=== PATIENT | male | born 1955 | race Caucasian/White ===

== ENCOUNTER 2019-03-31 12:44 | Emergency (ER) | payer OTHER ==
--- OUTSIDE RECORDS SUMMARY | 2019-03-31 12:47 | XMS REPORT ---
:1955 Author Organization eClinicalWorks Care Team Providers Name Role Phone Valentino Beebe Provider Role Unavailable Allergies, Adverse Reactions, Alerts Substance Reaction Event Type N.K.D.A. Info Not Available Non Drug Allergy Problems Problem Type Condition Code Onset Dates Condition Status Assessment Gout of left ankle, unspecified M10.9 Active cause, unspecified chronicity Assessment HTN, goal below 140/90 I10 Active Assessment Mixed hyperlipidemia E78.2 Active Assessment GERD without esophagitis K21.9 Active Problem GERD without esophagitis K21.9 Active Problem Hepatitis, chronic K73.9 Active Problem Mixed hyperlipidemia E78.2 Active Assessment Acute bronchitis, unspecified J20.9 Active organism Problem Gout of left ankle, unspecified M10.9 Active cause, unspecified chronicity Problem HTN, goal below 140/90 I10 Active Medications Medication Code Code Instructions Start End Status Dosage System Date Date Amlodipine [facility] 45912236883 10 MG Orally Active 1 tablet Besylate Once a day ProAir HFA [facility] 93809128184 108 (90 Base) March 07, Active 2 puffs as MCG/ACT 2017 needed Inhalation every 6 hrs PRN cough, Wheezing or Shortness of breath. Celecoxib ND 01935165009 200 MG Orally Active 1 capsule Once a day with food Benazepril HCl ND 67040548654 40 MG Orally Active 1 tablet Once a day Azithromycin ND 91403198589 250 MG Orally March 07February Active as directed Once a day 2017 Omeprazole ND 28295739188 20 MG Orally Active 1 capsule Once a day Centrum Silver ND 07026308816 - Orally Active as directed Allopurinol ND 32391367992 100 MG Orally Active 1 tablet Once a day Benzonatate ND 96097860367 200 MG Orally March 07March Active 1 capsule Three times a 2018 2017 Results No Known Results Summary Purpose eClinicalWorks Submission
[2019-03-31 14:00] LABS: Absolute Lymphocytes (CBC) 2.3 K/uL (0.7-4.9); Basophils % 1.1 % (0-1.3); Eosinophils % 2.1 % (0-4.4); Hematocrit 47.8 % (39.6-49.0); Lymphocytes % 28.8 % (15.3-44.8); MPV 9.4 fL (7.6-11.3); Monocytes % 9.2 % (3.3-12.3); RBC Red Blood Cell Count 5.08 M/uL (4.33-5.43)
[2019-03-31 14:01] LABS: Protime INR 1.08
[2019-03-31] MEDS ORDERED: MECLIZINE HCL 12.5 MG TAB ONE (14:01)
[2019-03-31 14:15] LABS: ALT/SGPT 46 U/L (12-78); AST/SGOT 24 U/L (15-37); Albumin 4.1 g/dL (3.4-5.0); Alkaline Phosphatase 60 U/L (45-117); BUN Blood Urea Nitrogen 15 mg/dL (7-18); Bicarbonate 26 mmol/L (21-32); Bilirubin Direct 0.2 mg/dL (0-0.2); Bilirubin Total 0.4 mg/dL (0.2-1.0); Glucose Level 99 mg/dL (74-106); Magnesium 2.4 mg/dL (1.8-2.4); Potassium 4.1 mmol/L (3.5-5.1); Protein, Total 7.8 g/dL (6.4-8.2); Sodium Level 140 mmol/L (136-145); Troponin (Emerg Dept Use Only) < 0.02 ng/mL (0.0-0.045)
[2019-03-31 14:19] LABS: NT PRO-BNP < 5 pg/mL (<125)
--- NOTE | 2019-03-31 14:22 | RAD REPORT ---
EXAM DESCRIPTION: CT - Head Brain Wo Cont - 03/31/2019 1:54 pm CLINICAL HISTORY: Dizziness COMPARISON: None. TECHNIQUE: Computed axial tomography of the head was obtained. IV contrast was not requested. All CT scans are performed using dose optimization technique as appropriate and may include automated exposure control or mA/KV adjustment according to patient size. FINDINGS: An intracranial bleed is not seen . The ventricles are normal in caliber. No extra-axial fluid collection is noted. Fluid within the sinuses/ mastoids is not seen. IMPRESSION: No acute intracranial abnormality is seen. If patient's symptoms persist MRI of the bra in would be recommended.
--- NOTE | 2019-03-31 14:26 | RAD REPORT ---
EXAM DESCRIPTION: [facility] Single View03/31/2019 2:14 pm CLINICAL HISTORY: Hypertension COMPARISON: 2008 FINDINGS: The lungs appear clear of acute infiltrate. The heart is normal size IMPRESSION: No acute abnormalities displayed
[2019-03-31] MEDS ORDERED: DIAZEPAM 5 MG TABLET ONE (14:58)
--- NOTE | 2019-03-31 15:36 | EKG ---
Test Date: 2019-03-31 Test Time: 12:55:48 Senior Clinical Project Manager: KELLI MEASUREMENT RESULTS: Intervals: Rate: 70 IN: 172 QRSD: 92 QT: 380 QTc: 410 [place]: P: 52 IN: 172 QRS: 59 T: 50 INTERPRETIVE STATEMENTS: Normal sinus rhythm Normal ECG No previous ECG available for comparison Electronically Signed On 03-31-19 15:35:08 CDT by Benito Garcia
--- NOTE | 2019-03-31 16:10 | ER ---
Nurse's Notes [facility] Name: Khai Quintanilla Age: 63 yrs Sex: Male : 1955 Arrival Date: 03/31/2019 Time: 12:47 Bed 28 Private MD: None, None Diagnosis: Benign paroxysmal vertigo Presentation: 03/31 12:57 Presenting complaint: Patient states: "I was dizzy a few days ago and my doctor said to aa5 go home eat some crackers and rest so I did that and I felt better but last night I started feeling dizzy again and woke up today feeling the same way" . Pt also reports nausea and reports diaphoresis during the night. Care prior to arrival: None. 12:57 Acuity: BONNIE 3 aa5 12:57 Method Of Arrival: Ambulatory aa5 12:57 Transition of care: patient was not received from another setting of care. Onset of aa5 symptoms was March 2019. Risk Assessment: Do you want to hurt yourself or someone else? Patient reports no desire to harm self or others. Initial Sepsis Screen: Does the patient meet any 2 criteria? No. Patient's initial sepsis screen is negative. Does the patient have a suspected source of infection? No. Patient's initial sepsis screen is negative. Historical: - Allergies: 13:01 No Known Allergies; aa5 - PMHx: 13:01 Hypertension; Hepatitis C- treated; Gout; aa5 - PSHx: 13:01 ankle; aa5 - Immunization history:: Flu vaccine is up to date. - Social history:: Smoking status: Patient/guardian denies using tobacco. - Ebola Screening: : No symptoms or risks identified at this time. Screenin:18 Abuse screen: Denies threats or abuse. Denies injuries from another. Nutritional ca1 screening: No deficits noted. Tuberculosis screening: No symptoms or risk factors identified. Fall Risk IV access (20 points). Assessment: 13:18 General: Appears in no apparent distress. comfortable, Behavior is calm, cooperative, ca1 appropriate for age. Pain: Denies pain. Neuro: Level of Consciousness is awake, alert, obeys commands, Oriented to person, place, time, situation, Aquatics Director are equal bilaterally Moves all extremities. Gait is steady, Speech is normal, Facial symmetry appears normal, Pupils are PERRLA, Reports dizziness, since 2-3 days ago. Cardiovascular: Heart tones S1 S2 present Capillary refill < 3 seconds Patient's skin is warm and dry. Pulses are all present. Rhythm is sinus rhythm. Respiratory: Reports shortness of breath on exertion Airway is patent Respiratory effort is even, unlabored, Respiratory pattern is regular, symmetrical, Breath sounds are clear bilaterally. GI: Abdomen is flat, non-distended, Bowel sounds present X 4 quads. Abd is soft and non tender X 4 quads. Reports nausea, Patient currently denies vomiting. : No deficits noted. No signs and/or symptoms were reported regarding the genitourinary system. EENT: No deficits noted. No signs and/or symptoms were reported regarding the EENT system. Derm: Skin is intact, is healthy with good turgor, Skin is pink, warm \\T\\ dry. Musculoskeletal: Circulation, motion, and sensation intact. Capillary refill < 3 seconds, Range of motion: intact in all extremities. 14:35 Reassessment: Patient appears in no apparent distress at this time. Patient and/or ca1 family updated on plan of care and expected duration. Pain level reassessed. Patient is alert, oriented x 3, equal unlabored respirations, skin warm/dry/pink. 15:42 Reassessment: Patient appears in no apparent distress at this time. Patient and/or ca1 family updated on plan of care and expected duration. Pain level reassessed. Patient is alert, oriented x 3, equal unlabored respirations, skin warm/dry/pink. 16:20 Reassessment: Patient is alert, oriented x 3, equal unlabored respirations, skin ca1 warm/dry/pink. Patient states feeling better. Vital Signs: 13:01 BP 153 / 97; Pulse 75; Resp 18 S; Temp 98.2(O); Pulse Ox 96% on R/A; Weight 97.52 kg aa5 (R); Height 5 ft. 11 in. (180.34 cm) (R); Pain 0/10; 13:18 BP 134 / 87; Pulse 65; Resp 14 S; Pulse Ox 97% on R/A; ca1 14:35 BP 140 / 95; Pulse 78; Resp 14 S; Temp 98.5(O); Pulse Ox 97% on R/A; ca1 15:42 BP 148 / 108; Pulse 69; Resp 17 S; Pulse Ox 98% on R/A; ca1 16:20 BP 138 / 93; Pulse 71; Resp 15 S; Pulse Ox 100% on R/A; ca1 13:01 Body Mass Index 29.99 (97.52 kg, 180.34 cm) aa5 ED Course: 12:47 Patient arrived in ED. dp 12:48 None, None is Private Physician. dp 12:56 Arm band placed on. aa5 12:58 Triage completed. aa5 13:00 EKG completed in triage. Results shown to MD. aa5 13:11 Dacia Morales, RN is Primary Nurse. ca1 13:18 Patient has correct armband on for positive identification. Placed in gown. Bed in low ca1 position. Call light in reach. Side rails up X 1. monitoring tech on. Pulse ox on. NIBP on. Warm blanket given. 13:18 No provider procedures requiring assistance completed. ca1 13:24 Amarjit Mena NP is PHCP. pm1 13:24 Arnaud Collins MD is Attending Physician. pm1 13:56 CT Head Brain wo Cont In Process Unspecified. EDMS 14:17 XRAY Chest (1 view) In Process Unspecified. EDMS 16:20 IV discontinued, intact, bleeding controlled, No redness/swelling at site. Pressure ca1 dressing applied. Administered Medications: 13:48 Drug: Meclizine 50 mg Route: PO; mg2 16:21 Follow up: Response: No adverse reaction ca1 14:43 Drug: Valium 5 mg Route: PO; ca1 16:21 Follow up: Response: No adverse reaction; Marked relief of symptoms ca1 Outcome: 16:09 Discharge ordered by MD. pm1 16:20 Discharged to home ambulatory, with family. ca1 16:20 Condition: stable 16:20 Discharge instructions given to patient, Instructed on discharge instructions, follow up and referral plans. medication usage, Demonstrated understanding of instructions, follow-up care, medications, Prescriptions given X 1. 16:26 Patient left the ED. ca1 Signatures: Dispatcher [employer] EDMS Marianne Limon RN RN aa5 Amarjit Mena, CLEO FURNITURE ARRANGER pm1 Cal Mack RN RN mg2 Dacia Morales RN RN ca1 Juan Dubosi
--- NOTE | 2019-03-31 16:10 | EDPHYS ---
Physician Documentation [facility] Name: Khai Quintanilla Age: 63 yrs Sex: Male : 1955 Arrival Date: 03/31/2019 Time: 12:47 Bed 28 Private MD: None, None ED Physician Arnaud Collins HPI: 03/31 14:02 This 63 yrs old Male presents to ER via Ambulatory with complaints of pm1 Dizziness. 14:02 The patient presents with sense of spinning, vertigo. Onset: The symptoms/episode pm1 began/occurred 2 day(s) ago. Context: occurred at home, just prior to the episode the patient experienced no apparent symptoms. Modifying factors: The symptoms are alleviated by nothing, the symptoms are aggravated by standing up, changing position. Associated signs and symptoms: Pertinent positives: nausea, shortness of breath, Pertinent negatives: abdominal pain, chest pain, diaphoresis, nausea, numbness, tingling. Severity of symptoms: in the emergency department the symptoms have improved at it's worse last night. Patient's baseline: Neuro: alert and fully oriented, Motor: no deficits, Ambulation: walks without assistance, Speech: normal. The patient has not experienced similar symptoms in the past. The patient has not recently seen a physician. Historical: - Allergies: 13:01 No Known Allergies; aa5 - PMHx: 13:01 Hypertension; Hepatitis C- treated; Gout; aa5 - PSHx: 13:01 ankle; aa5 - Immunization history:: Flu vaccine is up to date. - Social history:: Smoking status: Patient/guardian denies using tobacco. - Ebola Screening: : No symptoms or risks identified at this time. ROS: 14:02 Constitutional: Negative for fever, chills, and weight loss, Eyes: Negative for injury, pm1 pain, redness, and discharge, ENT: Negative for injury, pain, and discharge, Neck: Negative for injury, pain, and swelling, Cardiovascular: Negative for chest pain, palpitations, and edema, Back: Negative for injury and pain. 14:02 MS/Extremity: Negative for injury and deformity, Skin: Negative for injury, rash, and discoloration. 14:02 Respiratory: Positive for shortness of breath, Negative for cough, wheezing. 14:02 Abdomen/GI: Positive for nausea, Negative for abdominal pain, vomiting, diarrhea. 14:02 Neuro: Positive for dizziness, tinnitus, Negative for headache, numbness, tingling, weakness. Exam: 14:02 Constitutional: This is a well developed, well nourished patient who is awake, alert, pm1 and in no acute distress. Head/Face: Normocephalic, atraumatic. 14:02 ENT: Nares patent. No nasal discharge, no septal abnormalities noted. Tympanic membranes are normal and external auditory canals are clear. Oropharynx with no redness, swelling, or masses, exudates, or evidence of obstruction, uvula midline. Mucous membranes moist. Leela HallPike Test positive for causing surrounding area spinning that lasts shorter than 15 seconds Neck: Trachea midline, no thyromegaly or masses palpated, and no cervical lymphadenopathy. Supple, full range of motion without nuchal rigidity, or vertebral point tenderness. No Meningismus. Chest/axilla: Normal chest wall appearance and motion. Nontender with no deformity. No lesions are appreciated. Cardiovascular: Regular rate and rhythm with a normal S1 and S2. No gallops, murmurs, or rubs. Normal PMI, no JVD. No pulse deficits. Respiratory: Lungs have equal breath sounds bilaterally, clear to auscultation and percussion. No rales, rhonchi or wheezes noted. No increased work of breathing, no retractions or nasal flaring. Abdomen/GI: Soft, non-tender, with normal bowel sounds. No distension or tympany. No guarding or rebound. No evidence of tenderness throughout. Back: No spinal tenderness. No costovertebral tenderness. Full range of motion. Skin: Warm, dry with normal turgor. Normal color with no rashes, no lesions, and no evidence of cellulitis. MS/ Extremity: Pulses equal, no cyanosis. Neurovascular intact. Full, normal range of motion. 14:02 Eyes: Pupils: no acute changes, Extraocular movements: intact throughout, Conjunctiva: normal, Nystagmus: vestibular nystagmus. 14:02 Neuro: Orientation: is normal, Motor: moves all fours, Sensation: is normal. Vital Signs: 13:01 BP 153 / 97; Pulse 75; Resp 18 S; Temp 98.2(O); Pulse Ox 96% on R/A; Weight 97.52 kg aa5 (R); Height 5 ft. 11 in. (180.34 cm) (R); Pain 0/10; 13:18 BP 134 / 87; Pulse 65; Resp 14 S; Pulse Ox 97% on R/A; ca1 14:35 BP 140 / 95; Pulse 78; Resp 14 S; Temp 98.5(O); Pulse Ox 97% on R/A; ca1 15:42 BP 148 / 108; Pulse 69; Resp 17 S; Pulse Ox 98% on R/A; ca1 16:20 BP 138 / 93; Pulse 71; Resp 15 S; Pulse Ox 100% on R/A; ca1 13:01 Body Mass Index 29.99 (97.52 kg, 180.34 cm) aa5 MDM: 13:37 Patient medically screened. pm1 16:00 ED course: Patient significantly better with Valium. pm1 16:06 Data reviewed: vital signs. Data interpreted: Pulse oximetry: on room air is 98 %. pm1 Interpretation: normal. Counseling: I had a detailed discussion with the patient and/or guardian regarding: the historical points, exam findings, and any diagnostic results supporting the discharge/admit diagnosis, lab results, radiology results, the need for outpatient follow up, a neurologist, to return to the emergency department if symptoms worsen or persist or if there are any questions or concerns that arise at home. 03/31 13:38 Order name: Basic Metabolic Panel; Complete Time: 14:26 pm03/31 13:38 Order name: CBC with Diff; Complete Time: 14:08 pm03/31 13:38 Order name: LFT's; Complete Time: 14: pm03/31 13:38 Order name: Magnesium; Complete Time: 14:26 pm03/31 13:38 Order name: NT PRO-BNP; Complete Time: 14:26 pm03/31 13:38 Order name: PT-INR; Complete Time: 14:08 pm03/31 13:38 Order name: CT Head Brain wo Cont; Complete Time: 14:26 pm03/31 13:38 Order name: Troponin (emerg Dept Use Only); Complete Time: 14:26 pm03/31 13:38 Order name: XRAY Chest (1 view); Complete Time: 14:29 pm03/31 13:38 Order name: EKG; Complete Time: 13:40 pm1 03/31 13:38 Order name: Cardiac monitoring; Complete Time: 13:48 pm1 03/31 13:38 Order name: EKG - Nurse/Tech; Complete Time: 13:41 pm1 03/31 13:38 Order name: IV Saline Lock; Complete Time: 13:48 pm1 03/31 13:38 Order name: Labs collected and sent; Complete Time: 13:48 pm1 03/31 13:38 Order name: O2 Per Protocol; Complete Time: 13:48 pm1 03/31 13:38 Order name: O2 Sat Monitoring; Complete Time: 13:48 pm1 Administered Medications: 13:48 Drug: Meclizine 50 mg Route: PO; mg2 16:21 Follow up: Response: No adverse reaction ca1 14:43 Drug: Valium 5 mg Route: PO; ca1 16:21 Follow up: Response: No adverse reaction; Marked relief of symptoms ca1 Disposition: 03/31/19 16:09 Discharged to Home. Impression: Benign paroxysmal vertigo. - Condition is Stable. - Discharge Instructions: Benign Positional Vertigo. - Prescriptions for Valium 5 mg Oral Tablet - take 1 tablet by ORAL route every 8 hours As needed; 20 tablet. - Medication Reconciliation Form, Thank You Letter, Antibiotic Education, Prescription Opioid Use form. - Follow up: Emergency Department; When: As needed; Reason: Worsening of condition. Follow up: Private Physician; When: 2 - 3 days; Reason: Recheck today's complaints, Continuance of care, Re-evaluation by your physician. - Problem is new. - Symptoms have improved. Addendum: 04/01/2019 18:50 Co-signature as Attending Physician, Arnaud Collins MD. g s Signatures: Dispatcher [employer] EDIA Marianne Limon RN RN aa5 Amarjit Mena, UPTWISTER TENDER UPTWISTER TENDER pm1 Arnaud Collins MD MD gs Cal Mack RN RN mg2 Dacia Morales RN RN ca1 Corrections: (The following items were deleted from the chart) 03/31 16:26 16:09 03/31/2019 16:09 Discharged to Home. Impression: Benign paroxysmal vertigo. ca1 Condition is Stable. Forms are Medication Reconciliation Form, Thank You Letter, Antibiotic Education, Prescription Opioid Use. Follow up: Emergency Department; When: As needed; Reason: Worsening of condition. Follow up: Private Physician; When: 2 - 3 days; Reason: Recheck today's complaints, Continuance of care, Re-evaluation by your physician. Problem is new. Symptoms have improved. pm1
== END 2019-03-31 16:26 | disposition home or self-care (01) ==
LOC: ER 12:44
DX: H81.10 Benign paroxysmal vertigo, unspecified ear (principal); I10 Essential (primary) hypertension
CPT/HCPCS: 36415; 70450; 71045; 80048; 80076; 83735; 83880; 84484; 85025; 85610; 93005; 99284

== ENCOUNTER 2019-11-23 20:21 | Emergency (ER) | payer OTHER ==
--- OUTSIDE RECORDS SUMMARY | 2019-11-23 20:24 | XMS REPORT ---
:1955 Author Organization eClinicalWorks Care Team Providers Name Role Phone Valentino Beebe Provider Role Unavailable Allergies No Known Allergies Problems Problem Type Condition Code Onset Dates Condition Status Problem GERD without esophagitis K21.9 Active Problem Hepatitis, chronic K73.9 Active Problem Mixed hyperlipidemia E78.2 Active Problem Gout of left ankle, unspecified M10.9 Active cause, unspecified chronicity Problem HTN, goal below 140/90 I10 Active Medications No Known Medications Results No Known Results Summary Purpose eClinicalWorks Submission
--- OUTSIDE RECORDS SUMMARY | 2019-11-23 20:24 | XMS REPORT ---
:1955 [facility] [address] [place] [address] Care Team Providers Name Role Phone Unavailable Unavailable Unavailable Payers Payer Name Policy Type Policy Number Effective Date Expiration Date Problems This patient has no known problems. Allergies, Adverse Reactions, Alerts Allergy Allergy Status Severity Reaction(s) Onset Inactive Treating Comments Name Type Date Date Clinician No Known DA Active U 2019-05 Allergies -05 00:00:0 0 Medications This patient has no known medications. Results Test Description Test Time Test Comments Text Results Atomic Results Result Comments - XR CHEST 1V 2019-05-25 08:16:00 Patient Name: ODELL MOTT Unit No: [id number] EXAMS: CPT CODE: [id number] XR CHEST 1V 43024 EXAMINATION: - XR CHEST 1V. LOCATION: B2. HISTORY: Follow up. COMPARISON: Radiograph dated 05/24/2019. TECHNIQUE: Single AP view of the chest was obtained. FINDINGS: The heart is normal in size. Small left pleural effusion and left basilar opacities are present, decreased since prior exam. The right lung is clear. No acute osseous abnormality is identified. IMPRESSION: Small left pleural effusion with left basilar opacities, decreased since prior exam. at 0816 Reported and signed by: Zion Baez MD CC: Kassandra Francois MD; Cadence Holder TANNING [employer] ATTENDANT Technologist: Sara Caldwell RT(R) Transcrpt Date/Tm/Trnsp: 05/25/2019 (0816) [email or web address] Orig Print D/T: S: 05/25/2019 (0819) [facility] NAME: ODELL MOTT [address] PHYS: SYED.Yvonne [place] [address] : 1955 AGE: 63 SEX: M LOC: [place] A PHONE #: [phone] EXAM DATE: 05/25/2019 STATUS: ADM IN FAX #: [phone] RADIOLOGY NO: PAGE 1 Signed Report BASIC METABOLIC PANEL 2019-05-25 05:30:00 Test Item Value Reference Range Comments SODIUM (test code=NA) 138 MMOL/L 137-145 POTASSIUM (test code=K) 3.3 MMOL/L 3.5-5.1 CHLORIDE (test code=CL) 105 MMOL/L 98-107 CARBON DIOXIDE (test code=CO2) 28 MMOL/L 22-30 GLUCOSE (test code=GLU) 105 MG/DL 74-106 BLOOD UREA NITROGEN (test 8 MG/DL 9-20 code=BUN) GLOMERULAR FILTRATION RATE (test 51 Reporting units: ml/min/1.73 m2 code=GFR) (Modified MDRD Formula)Reference Range: > or=60 ml/min/1.73 m2 CREATININE (test code=CREAT) 1.40 MG/DL 0.66-1.25 CALCIUM (test code=CA) 9.4 MG/DL 8.4-10.2 BASIC METABOLIC [id number] 05:29:00 Test Item Value Reference Range Comments SODIUM (test code=NA) 138 MMOL/L 137-145 POTASSIUM (test code=K) 3.3 MMOL/L 3.5-5.1 CHLORIDE (test code=CL) 105 MMOL/L 98-107 CARBON DIOXIDE (test code=CO2) MMOL/L 22-30 GLUCOSE (test code=GLU) MG/DL 74-106 BLOOD UREA NITROGEN (test MG/DL 9-20 code=BUN) GLOMERULAR FILTRATION RATE 51 Reporting units: ml/min/1.73 (test code=GFR) m2 (Modified MDRD Formula)Reference Range: > or=60 ml/min/1.73 m2 CREATININE (test code=CREAT) 1.40 MG/DL 0.66-1.25 CALCIUM (test code=CA) MG/DL 8.7-9.7 BASIC METABOLIC [id number] 05:27:00 Test Item Value Reference Range Comments SODIUM (test code=NA) 138 MMOL/L 137-145 POTASSIUM (test code=K) 3.3 MMOL/L 3.5-5.1 CHLORIDE (test code=CL) 105 MMOL/L 98-107 CARBON DIOXIDE (test code=CO2) MMOL/L 22-30 GLUCOSE (test code=GLU) MG/DL 74-106 BLOOD UREA NITROGEN (test code=BUN) MG/DL 9-20 GLOMERULAR FILTRATION RATE (test code=GFR) CREATININE (test code=CREAT) MG/DL 0.66-1.25 CALCIUM (test code=CA) MG/DL 8.7-9.7 CBC W/AUTO [id number] 05:08:00 Test Item Value Reference Range Comments WHITE BLOOD CELL (test code=WBC) 10.1 K/MM3 3.8-9.8 RED BLOOD CELL (test code=RBC) 4.54 M/MM3 3.95-5.67 HEMOGLOBIN (test code=HGB) 14.5 G/DL 12.4-16.7 HEMATOCRIT (test code=HCT) 42.1 % 35.9-49.5 MEAN CELL VOLUME (test code=MCV) 93 fL 81.7-96.1 MEAN CELL HGB (test code=MCH) 31.9 pg 27.6-33.2 MEAN CELL HGB CONCETRATION (test code=MCHC) 34.4 % 32.9-35.5 RED CELL DISTRIBUTION WIDTH (test code=RDW) 13.1 % 12.1-15.2 PLATELET COUNT (test code=PLT) 224 K/MM3 129-368 MEAN PLATELET VOLUME (test code=MPV) 10.5 fl 7.4-10.4 NEUTROPHIL % (test code=NT%) 65.6 % 43-75 IMMATURE GRANULOCYTE % (test code=IG%) 0.3 % 0.0-2.0 LYMPHOCYTE % (test code=LY%) 22.0 % 14-44 MONOCYTE % (test code=MO%) 9.1 % 4-13 EOSINOPHIL % (test code=EO%) 2.3 % 0-6 BASOPHIL % (test code=BA%) 0.7 % 0-2 NUCLEATED RBC % (test code=NRBC%) 0.0 % 0-1.0 NEUTROPHIL # (test code=NT#) 6.63 K/mm3 2.0-7.6 IMMATURE GRANULOCYTE # (test code=IG#) 0.03 x10 3/uL 0-0.03 LYMPHOCYTE # (test code=LY#) 2.22 K/mm3 1.0-3.8 MONOCYTE # (test code=MO#) 0.92 K/mm3 0.1-0.8 EOSINOPHIL # (test code=EO#) 0.23 K/mm3 0.0-0.2 BASOPHIL # (test code=BA#) 0.07 K/mm3 0.0-0.2 NUCLEATED RBC # (test code=NRBC#) 0.00 K/mm3 0.0-0.1 - XR CHEST [id number] 08:07:00 Patient Name: ODELL MOTT Unit No: [id number] EXAMS: CPT CODE: [id number] XR CHEST 1V 43291 EXAMINATION: - XR CHEST 1V. LOCATION: B2. HISTORY: Follow up. COMPARISON: Radiograph dated 05/23/2019. TECHNIQUE: Single AP view of the chest was obtained. FINDINGS: The heart is normal in size. Smallbilateral pleural effusions and left basilar opacities are present, decreased on the right since prior exam. No acute osseous abnormality is identified. IMPRESSION:Small bilateral pleural effusions and left basilar opacities, decreased on the right since prior exam. at 0807 Reported and signed by: Zion Baez MD CC: Kassandra Francois MD;Cadence Holder [employer]ANNING [employer] ATTENDANT Technologist: Sara Caldwell RT(R) Transcrpt Date/Tm/Trnsp: 05/24/2019 (0807) AlejandroPR7 Orig Print D/T: S: 05/24/2019 (08) [facility] NAME: ODELL MOTT [address] PHYS: SYED.Yvonne - [place] [address] : 1955 AGE: 63 SEX: M LOC: Z.362 A PHONE #: [phone] EXAM DATE : 05/24/2019 STATUS: ADM IN FAX #: [phone] RADIOLOGY NO: PAGE 1 Signed ReportBASIC METABOLIC [id number] 05:58:00 Test Item Value Reference Range Comments SODIUM (test code=NA) 140 MMOL/L 137-145 POTASSIUM (test code=K) 3.0 MMOL/L 3.5-5.1 CHLORIDE (test code=CL) 104 MMOL/L 98-107 CARBON DIOXIDE (test code=CO2) 29 MMOL/L 22-30 ANION GAP (test code=GAP) 10 MMOL/L 14-24 GLUCOSE (test code=GLU) 114 MG/DL 74-106 BLOOD UREA NITROGEN (test 9 MG/DL 9-20 code=BUN) GLOMERULAR FILTRATION RATE 47 Reporting units: ml/min/1.73 (test code=GFR) m2 (Modified MDRD Formula)Reference Range: > or=60 ml/min/1.73 m2 CREATININE (test code=CREAT) 1.50 MG/DL 0.66-1.25 CALCIUM (test code=CA) 9.1 MG/DL 8.4-10.2 CBC W/AUTO [id number] 05:38:00 Test Item Value Reference Range Comments WHITE BLOOD CELL (test code=WBC) 9.3 K/MM3 3.8-9.8 RED BLOOD CELL (test code=RBC) 4.52 M/MM3 3.95-5.67 HEMOGLOBIN (test code=HGB) 14.2 G/DL 12.4-16.7 HEMATOCRIT (test code=HCT) 42.5 % 35.9-49.5 MEAN CELL VOLUME (test code=MCV) 94 fL 81.7-96.1 MEAN CELL HGB (test code=MCH) 31.4 pg 27.6-33.2 MEAN CELL HGB CONCETRATION (test code=MCHC) 33.4 % 32.9-35.5 RED CELL DISTRIBUTION WIDTH (test code=RDW) 13.0 % 12.1-15.2 PLATELET COUNT (test code=PLT) 225 K/MM3 129-368 MEAN PLATELET VOLUME (test code=MPV) 10.7 fl 7.4-10.4 NEUTROPHIL % (test code=NT%) 63.7 % 43-75 IMMATURE GRANULOCYTE % (test code=IG%) 0.4 % 0.0-2.0 LYMPHOCYTE % (test code=LY%) 22.0 % 14-44 MONOCYTE % (test code=MO%) 11.6 % 4-13 EOSINOPHIL % (test code=EO%) 1.5 % 0-6 BASOPHIL % (test code=BA%) 0.8 % 0-2 NUCLEATED RBC % (test code=NRBC%) 0.0 % 0-1.0 NEUTROPHIL # (test code=NT#) 5.95 K/mm3 2.0-7.6 IMMATURE GRANULOCYTE # (test code=IG#) 0.04 x10 3/uL 0-0.03 LYMPHOCYTE # (test code=LY#) 2.05 K/mm3 1.0-3.8 MONOCYTE # (test code=MO#) 1.08 K/mm3 0.1-0.8 EOSINOPHIL # (test code=EO#) 0.14 K/mm3 0.0-0.2 BASOPHIL # (test code=BA#) 0.07 K/mm3 0.0-0.2 NUCLEATED RBC # (test code=NRBC#) 0.00 K/mm3 0.0-0.1 BASIC METABOLIC [id number] 09:05:00 Test Item Value Reference Range Comments SODIUM (test code=NA) 139 MMOL/L 137-145 POTASSIUM (test code=K) 3.2 MMOL/L 3.5-5.1 CHLORIDE (test code=CL) 106 MMOL/L 98-107 CARBON DIOXIDE (test code=CO2) 27 MMOL/L 22-30 GLUCOSE (test code=GLU) 119 MG/DL 74-106 BLOOD UREA NITROGEN (test 11 MG/DL 9-20 code=BUN) GLOMERULAR FILTRATION RATE > 60 Reporting units: ml/min/1.73 (test code=GFR) m2 (Modified MDRD Formula)Reference Range: > or=60 ml/min/1.73 m2 CREATININE (test code=CREAT) 1.20 MG/DL 0.66-1.25 CALCIUM (test code=CA) 9.3 MG/DL 8.4-10.2 UNABLE TO DRAW BLOOD, REASON: TO BE DONE @ 800NOTIFIED PATIENT CARE STAFF: ELLEN 05/23/19 AT 0413BY Caro ReneeCBC W/AUTO [id number] 08:43: 00 Test Item Value Reference Range Comments WHITE BLOOD CELL (test code=WBC) 9.1 K/MM3 3.8-9.8 RED BLOOD CELL (test code=RBC) 4.69 M/MM3 3.95-5.67 HEMOGLOBIN (test code=HGB) 14.8 G/DL 12.4-16.7 HEMATOCRIT (test code=HCT) 44.1 % 35.9-49.5 MEAN CELL VOLUME (test code=MCV) 94 fL 81.7-96.1 MEAN CELL HGB (test code=MCH) 31.6 pg 27.6-33.2 MEAN CELL HGB CONCETRATION (test code=MCHC) 33.6 % 32.9-35.5 RED CELL DISTRIBUTION WIDTH (test code=RDW) 13.1 % 12.1-15.2 PLATELET COUNT (test code=PLT) 224 K/MM3 129-368 MEAN PLATELET VOLUME (test code=MPV) 10.5 fl 7.4-10.4 NEUTROPHIL % (test code=NT%) 63.7 % 43-75 IMMATURE GRANULOCYTE % (test code=IG%) 0.2 % 0.0-2.0 LYMPHOCYTE % (test code=LY%) 22.2 % 14-44 MONOCYTE % (test code=MO%) 11.4 % 4-13 EOSINOPHIL % (test code=EO%) 1.8 % 0-6 BASOPHIL % (test code=BA%) 0.7 % 0-2 NUCLEATED RBC % (test code=NRBC%) 0.0 % 0-1.0 NEUTROPHIL # (test code=NT#) 5.78 K/mm3 2.0-7.6 IMMATURE GRANULOCYTE # (test code=IG#) 0.02 x10 3/uL 0-0.03 LYMPHOCYTE # (test code=LY#) 2.01 K/mm3 1.0-3.8 MONOCYTE # (test code=MO#) 1.03 K/mm3 0.1-0.8 EOSINOPHIL # (test code=EO#) 0.16 K/mm3 0.0-0.2 BASOPHIL # (test code=BA#) 0.06 K/mm3 0.0-0.2 NUCLEATED RBC # (test code=NRBC#) 0.00 K/mm3 0.0-0.1 UNABLE TO DRAW BLOOD, REASON: TO BE DONE @ 800 NOTIFIED PATIENT CARE STAFF: ELLEN 05/23/19 AT 0414 BY Caro Renee- XR CHEST [id number] 07:55: 00 Patient Name: ODELL MOTT Unit No: [id number] EXAMS: CPT CODE: [id number] XR CHEST 1V 14847 EXAMINATION: - XR CHEST 1V. LOCATION: B2. HISTORY: follow up. COMPARISON: Radiograph dated 05/21/2019. TECHNIQUE: Single AP view of the chest was obtained. FINDINGS: The heart is normal in size. Small bilateral pleural effusions are present, unchanged. No acute osseous abnormality is identified. IMPRESSION: Small bilateral pleural effusions, unchanged. at 0755 Reported and signedby: Zion Baez MD CC: Kassandra Francois MD ; Cadence Holder [employer]ANNING [employer] ATTENDANT Technologist: RT Livia(R) Transcrpt Date/Tm/Trnsp: 05/23/2019 (0755) [email or web address] Orig Print D/T: S: 05/23/2019 (0758) [facility] NAME: ODELL MOTT [address] PHYS: SYED.Yvonne - [place] [address] : 1955 AGE: 63 SEX: M LOC: Z.SI06 A PHONE #: [phone] EXAM DATE: 05/23/2019 STATUS: ADM IN FAX #: [phone] NO: PAGE 1 Signed ReportBASIC METABOLIC [id number] 11:37:00 Test Item Value Reference Range Comments SODIUM (test code=NA) 141 MMOL/L 137-145 POTASSIUM (test code=K) 3.6 MMOL/L 3.5-5.1 CHLORIDE (test code=CL) 107 MMOL/L 98-107 CARBON DIOXIDE (test code=CO2) 25 MMOL/L 22-30 GLUCOSE (test code=GLU) 90 MG/DL 74-106 BLOOD UREA NITROGEN (test 13 MG/DL 9-20 code=BUN) GLOMERULAR FILTRATION RATE > 60 Reporting units: ml/min/1.73 (test code=GFR) m2 (Modified MDRD Formula)Reference Range: > or=60 ml/min/1.73 m2 CREATININE (test code=CREAT) 1.00 MG/DL 0.66-1.25 CALCIUM (test code=CA) 9.6 MG/DL 8.4-10.2 CBC W/AUTO [id number] 11:17:00 Test Item Value Reference Range Comments WHITE BLOOD CELL (test code=WBC) 10.4 K/MM3 3.8-9.8 RED BLOOD CELL (test code=RBC) 4.81 M/MM3 3.95-5.67 HEMOGLOBIN (test code=HGB) 15.4 G/DL 12.4-16.7 HEMATOCRIT (test code=HCT) 46.0 % 35.9-49.5 MEAN CELL VOLUME (test code=MCV) 96 fL 81.7-96.1 MEAN CELL HGB (test code=MCH) 32.0 pg 27.6-33.2 MEAN CELL HGB CONCETRATION (test code=MCHC) 33.5 % 32.9-35.5 RED CELL DISTRIBUTION WIDTH (test code=RDW) 13.2 % 12.1-15.2 PLATELET COUNT (test code=PLT) 210 K/MM3 129-368 MEAN PLATELET VOLUME (test code=MPV) 10.7 fl 7.4-10.4 NEUTROPHIL % (test code=NT%) 67.6 % 43-75 IMMATURE GRANULOCYTE % (test code=IG%) 0.3 % 0.0-2.0 LYMPHOCYTE % (test code=LY%) 20.1 % 14-44 MONOCYTE % (test code=MO%) 9.8 % 4-13 EOSINOPHIL % (test code=EO%) 1.5 % 0-6 BASOPHIL % (test code=BA%) 0.7 % 0-2 NUCLEATED RBC % (test code=NRBC%) 0.0 % 0-1.0 NEUTROPHIL # (test code=NT#) 7.06 K/mm3 2.0-7.6 IMMATURE GRANULOCYTE # (test code=IG#) 0.03 x10 3/uL 0-0.03 LYMPHOCYTE # (test code=LY#) 2.10 K/mm3 1.0-3.8 MONOCYTE # (test code=MO#) 1.02 K/mm3 0.1-0.8 EOSINOPHIL # (test code=EO#) 0.16 K/mm3 0.0-0.2 BASOPHIL # (test code=BA#) 0.07 K/mm3 0.0-0.2 NUCLEATED RBC # (test code=NRBC#) 0.00 K/mm3 0.0-0.1 - XR CHEST [id number] 08:57:00 Patient Name: OEDLL MOTT Unit No: [id number] EXAMS: CPT CODE: [id number] XR CHEST 1V 62755 Dictation location: B2. CHEST, FRONTAL VIEW HISTORY: chest pain FINDINGS: Since 05/20/19, the small bilateral pleural effusions, left greater than right are not significantly changed. The lungs are otherwise clear. The heart size is normal. No pneumothorax. The bones are intact. Surgical clips seen in the left paratracheal stripe. IMPRESSION: Stable trace to small bilateral pleural effusions. Electronically Signed by Lianne Garza MD on 04/2019 at 0857 Reported and signed by: Lianne Garza MD CC: Kassandra Francois MD; Madhavi Sarkar NP Technologist: Milton Black, (RT) (R) Transcrpt Date/Tm/Trnsp: 05/21/2019 (0857) [email or web address] Orig Print D/T: S: 05/21/2019 (0900) [facility] NAME: ODELL MOTT [address] [place] [address] PHYS: [place] [address] : 1955 AGE: 63 SEX: M LOC: Z.SI06 A PHONE #: [phone] EXAM DATE: 05/21/2019 STATUS: ADM IN FAX #: [phone] RADIOLOGY NO: PAGE 1 Signed Report- XR NECK SOFT [id number] 09:06:00 Patient Name: ODELL MOTT Unit No: [id number] EXAMS: CPT CODE: [id number] XR NECK SOFT TISSUE 75381 Dictation location: B2. SOFT TISSUE NECK, 2 VIEWSHISTORY: Esophageal tear. FINDINGS: No prevertebral soft tissue swelling. No subcutaneous emphysema. The cervical alignment is straightened. Mild to moderate cervical spondylosis. Chronic calcifications. On the frontal view there are potential 2 clipsat the thoracic inlet, not well visualized in the lateral view likely due to overlying soft tissues. IMPRESSION: Possible 2 clips along the thoracic inlet. No emphysema or prevertebral soft tissue swelling. at 0906 Reported and signed by: Lianne Garza MD CC: Kassandra Francois MD; Madhavi Sarkar NP Technologist: Gaby Oliveros (RT)(R) TranscrptDate/Tm/Trnsp: 05/20/2019 (905) Britton.[email or web address] Orig Print D /T: S: 05/20/2019 (908) [facility] NAME: ODELL MOTT [address] PHYS: [place] [address] : 1955 AGE: 63 SEX: M LOC: Z.SI06 A PHONE #: [phone] EXAM DATE: 05/20/2019 STATUS: ADM IN FAX #: [phone] RADIOLOGY NO: PAGE 1 Signed Report- XR CHEST 2 [id number] 09:00:00 Patient Name: ODELL MOTT Unit No: [id number] EXAMS: CPT CODE: [id number] XR CHEST 2 V 14083 Dictation location: L11. CHEST, FRONTAL AND LATERAL VIEWS HISTORY: esophageal tear FINDINGS: Since 05/19/19, small bilateral pleural effusions are noted, left greater than right with adjacent atelectasis. The remainder the lungs are clear. Heart size is normal. Mild degenerative changes affects the thoracic spine. IMPRESSION: Small bilateral pleural effusions. at 0900 Reported and signed by: Lianne Garza MD CC: Kassandra Francois MD; Madhavi Sarkar NP Technologist: Gaby Oliveros (RT)(R) Transcrpt Date/Tm /Trnsp: 05/20/2019 (09) [email or web address] Orig Print D/T: S: 2018 (0903) [facility] NAME: ODELL MOTT [address] PHYS: [place] [address] : 1955 AGE : 63 SEX: M LOC : Z.SI06 A PHONE #: [phone] EXAM DATE: 05/20/2019 STATUS : ADM IN FAX #: [phone] RADIOLOGY NO: PAGE 1 Signed ReportVANCOMYCIN [id number] 06:15:00 Test Item Value Reference Range Comments VANCOMYCIN TROUGH (test code=VANCT) 11.8 UG/ML 10.0-20.0 PER NURSE FIORAD DRAW THE VANCO WITH AM LABSBASIC METABOLIC [id number] 05 :15:00 Test Item Value Reference Range Comments SODIUM (test code=NA) 138 MMOL/L 137-145 POTASSIUM (test code=K) 3.7 MMOL/L 3.5-5.1 CHLORIDE (test code=CL) 106 MMOL/L 98-107 CARBON DIOXIDE (test code=CO2) 26 MMOL/L 22-30 GLUCOSE (test code=GLU) 112 MG/DL 74-106 BLOOD UREA NITROGEN (test 14 MG/DL 9-20 code=BUN) GLOMERULAR FILTRATION RATE > 60 Reporting units: ml/min/1.73 (test code=GFR) m2 (Modified MDRD Formula)Reference Range: > or=60 ml/min/1.73 m2 CREATININE (test code=CREAT) 0.90 MG/DL 0.66-1.25 CALCIUM (test code=CA) 8.9 MG/DL 8.4-10.2 CBC W/AUTO [id number] 04:57:00 Test Item Value Reference Range Comments WHITE BLOOD CELL (test code=WBC) 12.3 K/MM3 3.8-9.8 RED BLOOD CELL (test code=RBC) 4.67 M/MM3 3.95-5.67 HEMOGLOBIN (test code=HGB) 15.1 G/DL 12.4-16.7 HEMATOCRIT (test code=HCT) 44.2 % 35.9-49.5 MEAN CELL VOLUME (test code=MCV) 95 fL 81.7-96.1 MEAN CELL HGB (test code=MCH) 32.3 pg 27.6-33.2 MEAN CELL HGB CONCETRATION (test code=MCHC) 34.2 % 32.9-35.5 RED CELL DISTRIBUTION WIDTH (test code=RDW) 13.4 % 12.1-15.2 PLATELET COUNT (test code=PLT) 191 K/MM3 129-368 MEAN PLATELET VOLUME (test code=MPV) 10.9 fl 7.4-10.4 NEUTROPHIL % (test code=NT%) 72.5 % 43-75 IMMATURE GRANULOCYTE % (test code=IG%) 0.3 % 0.0-2.0 LYMPHOCYTE % (test code=LY%) 14.8 % 14-44 MONOCYTE % (test code=MO%) 10.9 % 4-13 EOSINOPHIL % (test code=EO%) 0.9 % 0-6 BASOPHIL % (test code=BA%) 0.6 % 0-2 NUCLEATED RBC % (test code=NRBC%) 0.0 % 0-1.0 NEUTROPHIL # (test code=NT#) 8.93 K/mm3 2.0-7.6 IMMATURE GRANULOCYTE # (test code=IG#) 0.04 x10 3/uL 0-0.03 LYMPHOCYTE # (test code=LY#) 1.83 K/mm3 1.0-3.8 MONOCYTE # (test code=MO#) 1.34 K/mm3 0.1-0.8 EOSINOPHIL # (test code=EO#) 0.11 K/mm3 0.0-0.2 BASOPHIL # (test code=BA#) 0.08 K/mm3 0.0-0.2 NUCLEATED RBC # (test code=NRBC#) 0.00 K/mm3 0.0-0.1 - XR CHEST [id number] 21:29:00 Patient Name: ODELL MOTT Unit No: [id number] EXAMS: CPT CODE: [id number] XR CHEST 1V 13305 - XR CHEST 1V, 05/19/2019 8:47 PM Reason For Examination: esophageal tear Comparison: CT neck performed yesterday Location: R16 Findings LUNGS: No definite pulmonary edema or consolidation, although exam findings limited by low lung volumes PLEURA: No pleural effusions CARDIOMEDIASTINAL SILHOUETTE Unremarkable Curvilinear density seen within the partially visualized neck as demonstrated on prior CT IMPRESSION: No consolidation or effusion or edema. at 2128 Reported and signed by: Luigi Cain CC: Kassandra Francois MD; Madhavi Sarkar NP Technologist: Maya Farfan (RT)(R) Transcrpt Date/Tm/Trnsp: 05/19/2019 (2128) [email or web address] Orig Print D/T: S: 05/19/2019 (2132) [facility] NAME: ODELL MOTT [address] PHYS: [place] [address] : 1954 AGE: 63 SEX: M LOC: Z.SI06 A PHONE #: [phone] EXAM DATE: 02/2019 STATUS: ADM IN FAX #: [phone] RADIOLOGY NO: PAGE 1 Signed Report- XR [id number] 16:36: 00 Patient Name: ODELL MOTT Unit No: [id number] EXAMS: CPT CODE: [id number] XR ESOPHAGUS 64450 EXAM: Contrast esophagram Dictation location: B2 INDICATION: History of Zenker' s diverticulum treated endoscopically. Evaluate for perforation. COMPARISON: CT neck performed earlier the same day DISCUSSION: Water-soluble contrast was administered under fluoroscopic evaluation and documented with spot films. There is opacification of the left sided Zenker's diverticulum such as on fluoroscopic series 6. The margins of the diverticulum are mostly rounded and smooth, particularly superiorly. However, there is more linear/angular extension of contrast at the inferior margin of the diverticulum (best seen on PACS thumbnails labeled "A:10" and "A:12"). This contrast does not clear after multiple swallows. There is inflammatory change adjacent to this location on the CT neck performed earlier today. Fluoroscopy time: 0.7 minutes Fluoroscopic images: 15 fluoroscopic series were performed Fluoroscopic dose: Not provided IMPRESSION: In addition to the rounded smooth contours of the left-sided Zenker's diverticulum demonstrated on this study, there is more linear/angular extension of contrast from the inferior margin of the diverticulum, with adjacent inflammatory change at this location on the CT neck performed earlier today. There is little if any inflammatory change adjacent to the upper portion of the Zenker's diverticulum on the CT neck performed earlier today. These suggest a localized and probably contained perforation of the inferior margin of this Zenker's diverticulum. Electronically Signed by Rolando Shelby MD on 2018 at 1636 Reported and signed by: Rolando Shelby MD CC: Kassandra Francois MD; Madhavi Sarkar NP Technologist: Rocio Child, RT (R) Transcrpt Date/Tm/Trnsp: 05/19/2019 (1636) [email or web address] Orig Print D/T: S: 05/19/2019 (9830) [facility] NAME: ODELL MOTT [address] PHYS: [place] [address] : 1955 AGE : 63 SEX: [facility] NO: [id number] LOC : [id number] PHONE #: [phone] EXAM DATE: 05/19/2019 STATUS : ADM IN FAX #: [phone] RADIOLOGY NO: PAGE 1 Signed ReportCOMPREHENSIVE METABOLIC [id number] 10:34:00 Test Item Value Reference Range Comments SODIUM (test code=NA) 139 MMOL/L 137-145 POTASSIUM (test code=K) 3.8 MMOL/L 3.5-5.1 CHLORIDE (test code=CL) 104 MMOL/L 98-107 CARBON DIOXIDE (test code=CO2) 23 MMOL/L 22-30 ANION GAP (test code=GAP) 16 MMOL/L 14-24 GLUCOSE (test code=GLU) 109 MG/DL 74-106 BLOOD UREA NITROGEN (test 15 MG/DL 9-20 code=BUN) GLOMERULAR FILTRATION RATE > 60 Reporting units: ml/min/1.73 (test code=GFR) m2 (Modified MDRD Formula)Reference Range: > or=60 ml/min/1.73 m2 CREATININE (test code=CREAT) 0.80 MG/DL 0.66-1.25 TOTAL PROTEIN (test code=PROT) 7.3 G/DL 6.2-7.6 ALBUMIN (test code=ALB) 4.1 G/DL 3.5-5.0 CALCIUM (test code=CA) 9.3 MG/DL 8.4-10.2 BILIRUBIN TOTAL (test 1.5 MG/DL 0.2-1.3 code=BILT) SGOT/AST (test code=AST) 33 UNITS/L 17-59 SGPT/ALT (test code=ALT) 31 UNITS/L 21-72 ALKALINE PHOSPHATASE (test 53 UNITS/L 38-126 code=ALKP) [id number] 10:34:00 Test Item Value Reference Range Comments MAGNESIUM (test code=MAG) 2.1 MG/DL 1.6-2.3 CBC W/O [id number] 10:15:00 Test Item Value Reference Range Comments WHITE BLOOD CELL (test code=WBC) 17.1 K/MM3 3.8-9.8 RED BLOOD CELL (test code=RBC) 5.04 M/MM3 3.95-5.67 HEMOGLOBIN (test code=HGB) 16.1 G/DL 12.4-16.7 HEMATOCRIT (test code=HCT) 46.9 % 35.9-49.5 MEAN CELL VOLUME (test code=MCV) 93 fL 81.7-96.1 MEAN CELL HGB (test code=MCH) 31.9 pg 27.6-33.2 MEAN CELL HGB CONCETRATION (test code=MCHC) 34.3 % 32.9-35.5 RED CELL DISTRIBUTION WIDTH (test code=RDW) 13.2 % 12.1-15.2 PLATELET COUNT (test code=PLT) 196 K/MM3 129-368 NEUTROPHIL # (test code=NT#) 12.81 K/mm3 2.0-7.6 IMMATURE GRANULOCYTE # (test code=IG#) 0.09 x10 3/uL 0-0.03 LYMPHOCYTE # (test code=LY#) 2.82 K/mm3 1.0-3.8 MONOCYTE # (test code=MO#) 1.32 K/mm3 0.1-0.8 EOSINOPHIL # (test code=EO#) 0.02 K/mm3 0.0-0.2 BASOPHIL # (test code=BA#) 0.08 K/mm3 0.0-0.2 NUCLEATED RBC # (test code=NRBC#) 0.00 K/mm3 0.0-0.1 [id number] 05:22:00 Test Item Value Reference Range Comments TROPONIN-I (test code=TROPI) < 0.012 NG/ML 0.012-0.033 - CTA [id number] 00:53:00 Patient Name: ODELL MOTT Unit No: [id number] EXAMS: CPT CODE: [id number] CTA CHEST [id number] AFTER HOURS SERVICE ON: 05/19/2019 12:[address] Scan of the Chest WithContrast Location Code M12 History: Dyspnea, hypoxia s/p egd Technique: Scans were performed on a helical scanner post IV contrast. Coronal and sagittal reconstructions were performed. One or more of the following dose reduction techniques were used: Automated exposure control, adjustment of the mA and/or kV according to patient size, and/or utilization of iterative reconstruction technique. FINDINGS: Study is motion degraded which limits evaluation of the smaller vessels. There areno filling defects in the pulmonary arteries to suggest a pulmonary embolism. No large centralor saddle embolus is seen in the pulmonary trunk. No aortic aneurysm or dissection seen. No cardiomegaly. No pericardial effusion. Mediastinal and esophageal abnormality asdescribed on the neck CT report. Atelectatic changes noted in the lower lobes. There is no edema. There is no pleural effusion. There is no pneumothorax. IMPRESSION: No pneumothorax. Mediastinal and esophageal abnormality as described on the neck CT report. AFTER HOURS SERVICE ON: 05/19/2019 12:[address] Scan of the Abdomen and Pelvis With Contrast Location Code M12 History: abd pain s/p egd Technique: Axial and reconstructed coronal scans were performed on a helical scanner post IV contrast. Delayed scans were also obtained. [facility] NAME: ODELL MOTT [address] PHYS: [email or web address] - [place] [address] : 1955 AGE: 63 SEX: M LOC: SUMAYA PHONE #: [phone] EXAM DATE: 05/19/2019 STATUS: REG ER FAX #: [phone] RAD #: D/C DT PAGE 1 Signed Report (CONTINUED) Patient Name: ODELL MOTT Unit No: [id number] EXAMS: CPT CODE: [id number] CTA CHEST 76059 <Continued> One or more of the following dose reduction techniques were used: Automated exposure control, adjustment of the mA and/or kV according to patient size, and/or utilization of iterative reconstruction technique. Findings: LIVER: No significant findings. GALLBLADDER/BILIARY: No significant findings. PANCREAS: No significant findings. SPLEEN: No significant findings. ADRENALS: No significant findings. KIDNEYS: There is a 2 cm exophytic left upper pole renal cyst. A small parenchymal hypodensities also noted measuring 8 mm which is too small to adequately characterize. There is no hydronephrosis in either kidney. BLADDER: No significant findings.GASTROINTESTINAL: Diverticular changes noted in the sigmoid colon without evidence of diverticulitis. Small bowel loops are within normal limits. There is no evidence of gastric perforation. There is no free air, free fluid or stranding. The appendix is normal. OTHER: Prostate gland is enlarged measuring 6.2 x 4.8 cm. IMPRESSION:No free or evidence of gastric perforation. Mediastinal and esophageal abnormalityas described on the neck CT report. at 0053 Reported and signed by: Eris Strickland M.D. CC: Kelli Beebe DO Technologist: Tod Monzon, RT(R)(CT) CTDI: DLP : Trnscrpt: 05/19/2019 (0053) [email or web address] [facility] NAME: ODELL MOTT [address] PHYS: [place] [address] : 1955 AGE: 63 SEX: M LOC: SUMAYA PHONE #: [phone] EXAM DATE: 05/19/2019 STATUS: REG ER FAX #: [phone] RAD # : D/C DT PAGE 2 Signed Report Patient Name: ODELL MOTT Unit No: [id number] EXAMS: CPT CODE: [id number] CTA CHEST 45035 <Continued> Orig Print D/T: S: 05/19/2019 (0056) [facility] NAME: ODELL MOTT [address] PHYS: [email or web address] - [place] [address] : 1955 AGE: 63 SEX: M LOC: SUMAYA PHONE #: [phone] EXAM DATE: 05/19/2019 STATUS: REG ER FAX #: [phone] RAD #: D/C DT PAGE 3 Signed Report- CT ABD PELVIS W/[id number] 00:53:00 Patient Name: ODELL MOTT Unit No: [id number] EXAMS: CPT CODE: [id number] CT ABD PELVIS W/CONT 96819 AFTER HOURS SERVICE ON: 05/19/2019 12:[address] [facility] Code M12 History: Dyspnea, hypoxia s/p egd Technique: Scans were performed on a helical scanner post IV contrast. Coronal and sagittal reconstructions were performed. One or more of the following dose reduction techniques were used: Automated exposure control, adjustment of the mA and/or kV according to patient size, and/or utilization of iterative reconstruction technique. FINDINGS: Study is motion degraded which limits evaluation of the smaller vessels. There areno filling defects in the pulmonary arteries to suggest a pulmonary embolism. No large centralor saddle embolus is seen in the pulmonary trunk. No aortic aneurysm or dissection seen. No cardiomegaly. No pericardial effusion. Mediastinal and esophageal abnormality asdescribed on the neck CT report. Atelectatic changes noted in the lower lobes. There is no edema. There is no pleural effusion. There is no pneumothorax. IMPRESSION: No pneumothorax. Mediastinal and esophageal abnormality as described on the neck CT report. AFTER HOURS SERVICE ON: 05/19/2019 12:[address] Scan of the Abdomen and Pelvis With Contrast Location Code M12 History: abd pain s/p egd Technique: Axial and reconstructed coronal scans were performed on a helical scanner post IV contrast. Delayed scans were also obtained. [facility] NAME: ODELL MOTT [id number] PHYS: [place] [address] : 1955 AGE: 63 SEX: M LOC: SUMAYA PHONE #: [phone] EXAM DATE: 05/19/2019 STATUS: REG ER FAX #: [phone] RAD #: D/C DT PAGE 1 Signed Report (CONTINUED) Patient Name: ODELL MOTT Unit No: [id number] EXAMS: CPT CODE: [id number] CT ABD PELVIS W/CONT 69529 <Continued> One or more of the following dose reduction techniques were used: Automated exposure control, adjustment of the mA and/or kV according to patient size, and/or utilization of iterative reconstruction technique. Findings: LIVER: No significant findings. GALLBLADDER/BILIARY: No significant findings. PANCREAS: No significant findings. SPLEEN: No significant findings. ADRENALS: No significant findings. KIDNEYS: There is a 2 cm exophytic left upper pole renal cyst. A small parenchymal hypodensities also noted measuring 8 mm which is too small to adequately characterize. There is no hydronephrosis in either kidney. BLADDER: No significant findings.GASTROINTESTINAL: Diverticular changes noted in the sigmoid colon without evidence of diverticulitis. Small bowel loops are within normal limits. There is no evidence of gastric perforation. There is no free air, free fluid or stranding. The appendix is normal. OTHER: Prostate gland is enlarged measuring 6.2 x 4.8 cm. IMPRESSION: No free or evidence of gastric perforation. Mediastinal and esophageal abnormalityas described on the neck CT report. at 0053 Reported and signed by : Eris Strickland M.D. CC: Kelli Beebe DO Technologist: Tod Monzon, RT(R)(CT) CTDI: DLP: Trnscrpt : 05/19/2019 (52) [email or web address] [facility] NAME: ODELL MOTT PHYS: [place] [address] : 1955 AGE: 63 SEX: M LOC: [facility]ERS PHONE #: [phone] EXAM DATE: 05/19/2019 STATUS: REG ER FAX #: [phone] RAD #: D/C DT PAGE 2 Signed Report Patient Name: ODELL MOTT Unit No: [id number] EXAMS : CPT CODE: [id number] CT ABD PELVIS W/CONT 37641 <Continued> Orig Print D/T: S: 05/19/2019 (005) [facility] NAME: ODELL MOTT PHYS : [place] [address] : AGE: 63 SEX: M LOC: Z[facility]ERS PHONE #: [phone] EXAM DATE: 02/2019 STATUS: REG ER FAX #: [phone] RAD #: D/C DT PAGE 3 Signed Report- CT NECK W/ [id number] 00:48:00 Patient Name: ODELL MOTT Unit No : [id number] EXAMS: CPT CODE: [id number] CT NECK W/CONTRAST 42664 AFTER HOURS SERVICE ON: 05/19/2019 12:[address] Scan of the Neck With Contrast Location Code M12 History: neck pain s/p endoscopy eval for perf Technique: The study was performed on a helical scanner post IV contrast only. One or more of the following dose reduction techniques were used: Automated exposure control, adjustment of the mA and/or kV according to patient size, and/or utilization of iterative reconstruction technique. Findings : There is a contained extraluminal air pockets measuring approximately 4 cm the left of the distal cervical esophagusconsistent with esophageal perforation. There is an L shaped 1.5 cm metallic foreign body between the air pocket and the esophageal lumen. Superior mediastinal hematoma is noted just inferior to the site of the perforation measuring 2.5 x 2.8 cm. Additional stranding is noted extending into the mediastinum in the periaortic space. There is diffuse wall thickening of the esophagus involving approximately a 7 cm segment below the perforation extending to the level of the rosmery. Remainder of the esophagus in the thoracic segment is unremarkable. The upper airway is unremarkable. There is no endotracheal lesion. There is no asymmetric mucosal lesions or abnormal enhancement to the neck spaces. There is no apical pleural thickening. There is mild thickening of the lingular tonsils. No evident palatine tonsils are intact. Impression: Perforation of the distal cervical esophagus at the level of the thoracic involving the left lateral wall. Small hematoma and edema extending into the superior mediastinum. Small 4 cm contained air pocket at thesite of the perforation. No evidence of widespread pneumomediastinum. L-shaped 1.5 cm metallic foreign body at the site of the perforation. Mild thickening of the lingular tonsils. at 0048 Reported andsigned by: Eris Strickland M.D. [facility] NAME: ODELL MOTT [address] PHYS: Kelli Howard [place] [id number] : 1955 AGE: 63 SEX: MACCT NO: [id number] LOC: [facility] PHONE #: [phone] EXAM DATE: STATUS: REG ER FAX #: [phone] RAD #: D/C DT PAGE 1 Signed Report (CONTINUED) Patient Name: ODELL MOTT Unit No: [id number] EXAMS: CPT CODE: [id number] CT NECK W/CONTRAST 44778 < Continued> CC: Kelli Beebe DO Technologist: Tod Monzon RT(R)(CT) CTDI: DLP: Trnscrpt: 05/19/2019 (0048) [email or web address] [facility] NAME: ODELL MOTT [address] PHYS: [place] [address] : 1955 AGE: 63 SEX: M LOC: [facility]ERS PHONE #: [phone] EXAM DATE: 05/19/2019 STATUS: REG ER FAX #: [phone] RAD # : D/C DT PAGE 2 Signed Report Patient Name: ODELL MOTT Unit No:[id number] EXAMS: CPT CODE: [id number] CTNECK W/CONTRAST 94467 < Continued> Orig Print D/T: S: 05/19/2019 (0051) [facility] NAME : ODELL MOTT [address] PHYS: [email or web address] - [place] [address] : 1954 AGE: 63 SEX: M LOC: Z[facility]ERS PHONE #: [phone] EXAM DATE: STATUS: REG ER FAX #: [phone] RAD #: D/C DT PAGE 3 Signed ReportCOMPREHENSIVE METABOLIC [id number] 00:04:00 Test Item Value Reference Range Comments SODIUM (test code=NA) 137 MMOL/L 137-145 POTASSIUM (test code=K) 4.1 MMOL/L 3.5-5.1 CHLORIDE (test code=CL) 101 MMOL/L 98-107 CARBON DIOXIDE (test code=CO2) 25 MMOL/L 22-30 GLUCOSE (test code=GLU) 114 MG/DL 74-106 BLOOD UREA NITROGEN (test 16 MG/DL 9-20 code=BUN) GLOMERULAR FILTRATION RATE > 60 Reporting units: ml/min/1.73 (test code=GFR) m2 (Modified MDRD Formula)Reference Range: > or=60 ml/min/1.73 m2 CREATININE (test code=CREAT) 0.80 MG/DL 0.66-1.25 TOTAL PROTEIN (test code=PROT) 8.4 G/DL 6.2-7.6 ALBUMIN (test code=ALB) 4.8 G/DL 3.5-5.0 CALCIUM (test code=CA) 9.9 MG/DL 8.4-10.2 BILIRUBIN TOTAL (test 1.4 MG/DL 0.2-1.3 code=BILT) SGOT/AST (test code=AST) 50 UNITS/L 17-59 SGPT/ALT (test code=ALT) 34 UNITS/L 21-72 ALKALINE PHOSPHATASE (test 54 UNITS/L 38-126 code=ALKP) CREATINE KINASE (CK)2019-05-19 00:04:00 Test Item Value Reference Range Comments CREATINE KINASE (CK) (test code=CK) 697 UNITS/L 55-170 NT PRO-BRAIN NATRIURETIC [id number] 00:04:00 Test Item Value Reference Range Comments NT PRO-BRAIN NATRIURETIC 36.2 pg/mL 0-125 PEPTI (test code=PROBNP) NT PRO-BNP IS THE REPLACEMENT ASSAY FOR BNP. [id number] 00:04:00 Test Item Value Reference Range Comments TROPONIN-I (test code=TROPI) < 0.012 NG/ML 0.012-0.033 [id number] 00:04:00 Test Item Value Reference Range Comments ALCOHOL (test code=ALC) < 10.0 MG/DL <10 COMPREHENSIVE METABOLIC [id number] 23:55:00 Test Item Value Reference Range Comments SODIUM (test code=NA) 137 MMOL/L 137-145 POTASSIUM (test code=K) 4.1 MMOL/L 3.5-5.1 CHLORIDE (test code=CL) 101 MMOL/L 98-107 CARBON DIOXIDE (test code=CO2) 25 MMOL/L 22-30 GLUCOSE (test code=GLU) 114 MG/DL 74-106 BLOOD UREA NITROGEN (test 16 MG/DL 9-20 code=BUN) GLOMERULAR FILTRATION RATE > 60 Reporting units: ml/min/1.73 (test code=GFR) m2 (Modified MDRD Formula)Reference Range: > or=60 ml/min/1.73 m2 CREATININE (test code=CREAT) 0.80 MG/DL 0.66-1.25 TOTAL PROTEIN (test code=PROT) 8.4 G/DL 6.2-7.6 ALBUMIN (test code=ALB) 4.8 G/DL 3.5-5.0 CALCIUM (test code=CA) 9.9 MG/DL 8.4-10.2 BILIRUBIN TOTAL (test 1.4 MG/DL 0.2-1.3 code=BILT) SGOT/AST (test code=AST) 50 UNITS/L 17-59 SGPT/ALT (test code=ALT) 34 UNITS/L 21-72 ALKALINE PHOSPHATASE (test 54 UNITS/L 38-126 code=ALKP) CREATINE KINASE (CK)2019-05-18 23:55:00 Test Item Value Reference Range Comments CREATINE KINASE (CK) (test code=CK) 697 UNITS/L 55-170 NT PRO-BRAIN NATRIURETIC [id number] 23:55:00 Test Item Value Reference Range Comments NT PRO-BRAIN NATRIURETIC PEPTI (test code=PROBNP) pg/mL 0-125 [id number] 23:55:00 Test Item Value Reference Range Comments TROPONIN-I (test code=TROPI) NG/ML 0.0-0.045 [id number] 23:55:00 Test Item Value Reference Range Comments ALCOHOL (test code=ALC) < 10.0 MG/DL <10 CBC W/AUTO [id number] 23:38:00 Test Item Value Reference Range Comments WHITE BLOOD CELL (test code=WBC) 18.2 K/MM3 3.8-9.8 RED BLOOD CELL (test code=RBC) 5.34 M/MM3 3.95-5.67 HEMOGLOBIN (test code=HGB) 17.0 G/DL 12.4-16.7 HEMATOCRIT (test code=HCT) 48.9 % 35.9-49.5 MEAN CELL VOLUME (test code=MCV) 92 fL 81.7-96.1 MEAN CELL HGB (test code=MCH) 31.8 pg 27.6-33.2 MEAN CELL HGB CONCETRATION (test code=MCHC) 34.8 % 32.9-35.5 RED CELL DISTRIBUTION WIDTH (test code=RDW) 13.0 % 12.1-15.2 PLATELET COUNT (test code=PLT) 233 K/MM3 129-368 MEAN PLATELET VOLUME (test code=MPV) 10.7 fl 7.4-10.4 NEUTROPHIL % (test code=NT%) 83.4 % 43-75 IMMATURE GRANULOCYTE % (test code=IG%) 0.5 % 0.0-2.0 LYMPHOCYTE % (test code=LY%) 8.8 % 14-44 MONOCYTE % (test code=MO%) 6.8 % 4-13 EOSINOPHIL % (test code=EO%) 0.1 % 0-6 BASOPHIL % (test code=BA%) 0.4 % 0-2 NUCLEATED RBC % (test code=NRBC%) 0.0 % 0-1.0 NEUTROPHIL # (test code=NT#) 15.17 K/mm3 2.0-7.6 IMMATURE GRANULOCYTE # (test code=IG#) 0.09 x10 3/uL 0-0.03 LYMPHOCYTE # (test code=LY#) 1.59 K/mm3 1.0-3.8 MONOCYTE # (test code=MO#) 1.23 K/mm3 0.1-0.8 EOSINOPHIL # (test code=EO#) 0.01 K/mm3 0.0-0.2 BASOPHIL # (test code=BA#) 0.07 K/mm3 0.0-0.2 NUCLEATED RBC # (test code=NRBC#) 0.00 K/mm3 0.0-0.1 POC VENOUS BLOOD [id number] 23:21:00 Test Item Value Reference Range Comments POC LACTIC ACID (test code=POCLAC) 0.93 MMOL/L 0.4-2.0 POC VENOUS BLOOD GAS PH (test code=POCPHV) 7.453 7.35-7.45 POC VENOUS BLOOD GAS PCO2 (test code=WROCFN6A) 40.0 mmHg 35.0-45.0 POC VENOUS BLOOD GAS PO2 (test code=XRYBQ2P) 88.0 mmHG 0-40 POC HCO3 VENOUS (test code=WJYBQA0S) 28.0 MMOL/L 20-26 POC BASE EXCESS VENOUS (test code=POCBEV) 4 MMOL/L -3.0-3.0 POC O2 SATURATION VENOUS (test code=BCOD1HM) 97 % 72-77 - XR CHEST [id number] 23:12:00 Patient Name: ODELL MOTT Unit No: [id number] EXAMS: CPT CODE: [id number] XR CHEST 1V 29036 . HISTORY: chest pain, shortness of breath Location code: B2 FINDINGS: Frontal view of the chest demonstrates normal cardiomediastinal silhouette. The trachea is midline. Patchy left basilar atelectasis with a small left effusion. No pneumothorax. The bones are intact. IMPRESSION: Patchy left basilar atelectasis witha small left effusion at 2312 Reported and signed by: Ridge Palacios M.D. CC: Kelli Beebe DO Technologist: Maya Farfan (RT)(R) Transcrpt Date/Tm/Trnsp: 05/18/2019 ( 0832) [email or web address] Orig Print D/T: S: 05/18/2019 (6068) [facility] NAME: ODELL MOTT [address] PHYS: [email or web address] - [place] [address] : 1955 AGE: 63 SEX: M LOC: [facility]ERS PHONE #: [phone] EXAM DATE: 05/18/2019 STATUS: PRE ER FAX #: [phone] RADIOLOGY NO: PAGE 1 Signed Report
[2019-11-23] MEDS ORDERED: KETOROLAC 30 MG/ML INJ ONE (22:14)
--- NOTE | 2019-11-23 22:16 | ER ---
Nurse's Notes [facility] Name: Khai Quintanilla Age: 64 yrs Sex: Male : 1955 Arrival Date: 11/23/2019 Time: 20:25 Bed 25 Private MD: Diagnosis: Fall on same level, unspecified;Abrasion of right upper arm;Contusion of right upper arm Presentation: 11/22 20:28 Chief complaint: Patient states: "I was digging in the garden with a shovel and I was I aj1 was stepping on it and I fell back wards and hit my arm on a railroad tie and I think I broke it" Patient reports pain to right forearm. Coronavirus screen: The patient has NOT traveled to a country currently being monitored by the CDC within the last 14 days. Ebola Screen: Patient denies travel to an Ebola-affected area in the 21 days before illness onset. Initial Sepsis Screen: Does the patient meet any 2 criteria? No. Patient's initial sepsis screen is negative. Does the patient have a suspected source of infection? No. Patient's initial sepsis screen is negative. Risk Assessment: Do you want to hurt yourself or someone else? Patient reports no desire to harm self or others. 20:28 Method Of Arrival: Ambulatory aj1 20:28 Acuity: BONNIE 4 aj1 22:24 Onset of symptoms was November 23, 2019. ls4 Triage Assessment: 20:29 General: Appears in no apparent distress. comfortable, Behavior is calm, cooperative, aj1 appropriate for age. Pain: Complains of pain in right arm. Neuro: Level of Consciousness is awake, alert, obeys commands. Cardiovascular: Patient's skin is warm and dry. Respiratory: Airway is patent Respiratory effort is even, unlabored, Respiratory pattern is regular, symmetrical. Musculoskeletal: Range of motion: limited in right elbow. 20:30 Injury Description: Bruise sustained to right arm. ls4 20:30 Musculoskeletal: Tenderness present in palmar aspect of right forearm pulse +2 cap ls4 refill ,2, sensation intact, full range of motion in all joints of right arm and fingers. pt reapplied own sling. Historical: - Allergies: 20:29 No Known Allergies; aj1 - Home Meds: 20:29 None [Active]; aj1 - PMHx: 20:29 Gout; Hypertension; aj1 - Immunization history:: Flu vaccine is not up to date. - Social history:: Smoking status: Patient/guardian denies using tobacco. Screenin:18 Abuse screen: Denies threats or abuse. Denies injuries from another. Nutritional ls4 screening: No deficits noted. Tuberculosis screening: No symptoms or risk factors identified. Fall Risk None identified. Assessment: 22:22 General: Appears in no apparent distress. comfortable. Neuro: No deficits noted. ls4 Cardiovascular: No deficits noted. Respiratory: No deficits noted. Vital Signs: 20:29 BP 162 / 97; Pulse 98; Resp 18; Temp 97.8; Pulse Ox 96% on R/A; Weight 93.44 kg (R); aj1 Height 5 ft. 11 in. (180.34 cm) (R); Pain 7/10; 20:30 BP 155 / 60; Pulse 78; Resp 14; Pulse Ox 99% on R/A; Pain 5/10; ls4 20:29 Body Mass Index 28.73 (93.44 kg, 180.34 cm) aj ED Course: 20:25 Patient arrived in ED. jg7 20:29 Triage completed. aj1 20:29 Arm band placed on Patient placed in waiting room, Patient notified of wait time. aj1 20:59 Sofia Noriega FNP-C is [facility]. snw 20:59 Kamaljit Rod MD is Attending Physician. snw 21:08 XRAY Forearm RIGHT In Process Unspecified. EDMS 21:15 X-ray completed. Patient tolerated procedure well. 21:20 Patient has correct armband on for positive identification. Bed in low position. Call ls4 light in reach. Side rails up X 1. 21:21 Patient did not have IV access during this emergency room visit. ls4 21:23 Michelle Linares, RN is Primary Nurse. ls4 22:24 No provider procedures requiring assistance completed. ls4 Administered Medications: 22:10 Drug: TORadol 60 mg Route: IM; Site: right deltoid; ls4 22:34 Follow up: Response: No adverse reaction vc 22:34 Drug: Hibiclens 4 % 1 application Route: Topical; Site: right forearm; vc Outcome: 22:15 Discharge ordered by . snw 22:25 Discharged to home ambulatory. ls4 22:25 Condition: good 22:25 Discharge instructions given to patient, Instructed on discharge instructions, follow up and referral plans. medication usage, Demonstrated understanding of instructions, follow-up care, medications, Prescriptions given X 1. 22:35 Patient left the ED. Signatures: Dispatcher [employer] EDSusana Coffey RN RN aj1 Sofia Noriega, UNIVERSITY RELATIONS VICE PRESIDENT-C UNIVERSITY RELATIONS VICE PRESIDENT-Csnw Michelle Linares RN RN ls4 Jeanne Vargasg7 Rupa Clifford RN RN vc Hallum, Brittan
--- NOTE | 2019-11-23 22:16 | EDPHYS ---
Physician Documentation [facility] Name: Khai Quintanilla Age: 64 yrs Sex: Male : 1955 Arrival Date: 11/23/2019 Time: 20:25 Bed 25 Private MD: MELONY Physician Kamaljit Rod HPI: 11/22 22:27 This 64 yrs old Male presents to ER via Ambulatory with complaints of Arm snw Injury. 22:27 The patient or guardian complains of pain, that is acute. The complaints affect the snw palmar aspect of right forearm. Context: The problem was sustained at home, outdoors, resulted from a fall, the patient slipped. Onset: The symptoms/episode began/occurred suddenly, today, and became persistent. Treatment prior to arrival includes: icing the affected extremity. Associated signs and symptoms: Pertinent positives: abrasion to right forearm. Severity of symptoms: At their worst the symptoms were moderate. The patient has not experienced similar symptoms in the past. It is unknown whether or not the patient has recently seen a physician. Historical: - Allergies: 20:29 No Known Allergies; aj1 - Home Meds: 20:29 None [Active]; aj1 - PMHx: 20:29 Gout; Hypertension; aj1 - Immunization history:: Flu vaccine is not up to date. - Social history:: Smoking status: Patient/guardian denies using tobacco. ROS: 22:26 Constitutional: Negative for fever, chills, and weight loss, Eyes: Negative for injury, snw pain, redness, and discharge, ENT: Negative for injury, pain, and discharge, Neck: Negative for injury, pain, and swelling, Cardiovascular: Negative for chest pain, palpitations, and edema, Respiratory: Negative for shortness of breath, cough, wheezing, and pleuritic chest pain, Abdomen/GI: Negative for abdominal pain, nausea, vomiting, diarrhea, and constipation, Back: Negative for injury and pain, : Negative for injury, bleeding, discharge, and swelling, Skin: Negative for injury, rash, and discoloration, Neuro: Negative for headache, weakness, numbness, tingling, and seizure, Psych: Negative for depression, anxiety, suicide ideation, homicidal ideation, and hallucinations. 22:26 MS/extremity: Positive for injury or acute deformity, contusion, decreased range of motion, pain, swelling, tenderness, of the right elbow. Exam: 22:17 Constitutional: This is a well developed, well nourished patient who is awake, alert, snw and in no acute distress. Head/Face: Normocephalic, atraumatic. Eyes: Pupils equal round and reactive to light, extra-ocular motions intact. Lids and lashes normal. Conjunctiva and sclera are non-icteric and not injected. Cornea within normal limits. Periorbital areas with no swelling, redness, or edema. ENT: Nares patent. No nasal discharge, no septal abnormalities noted. Tympanic membranes are normal and external auditory canals are clear. Oropharynx with no redness, swelling, or masses, exudates, or evidence of obstruction, uvula midline. Mucous membranes moist. Neck: Trachea midline, no thyromegaly or masses palpated, and no cervical lymphadenopathy. Supple, full range of motion without nuchal rigidity, or vertebral point tenderness. No Meningismus. Chest/axilla: Normal chest wall appearance and motion. Nontender with no deformity. No lesions are appreciated. Cardiovascular: Regular rate and rhythm with a normal S1 and S2. No gallops, murmurs, or rubs. Normal PMI, no JVD. No pulse deficits. Respiratory: Lungs have equal breath sounds bilaterally, clear to auscultation and percussion. No rales, rhonchi or wheezes noted. No increased work of breathing, no retractions or nasal flaring. Abdomen/GI: Soft, non-tender, with normal bowel sounds. No distension or tympany. No guarding or rebound. No evidence of tenderness throughout. Back: No spinal tenderness. No costovertebral tenderness. Full range of motion. Neuro: Awake and alert, GCS 15, oriented to person, place, time, and situation. Cranial nerves II-XII grossly intact. Motor strength 5/5 in all extremities. Sensory grossly intact. Cerebellar exam normal. Normal gait. Psych: Awake, alert, with orientation to person, place and time. Behavior, mood, and affect are within normal limits. 22:17 Skin: Appearance: Color: normal in color, injury, abrasion(s), small abrasion noted, of the right elbow, contusion(s), that are superficial, of the right elbow. Vital Signs: 20:29 BP 162 / 97; Pulse 98; Resp 18; Temp 97.8; Pulse Ox 96% on R/A; Weight 93.44 kg (R); aj1 Height 5 ft. 11 in. (180.34 cm) (R); Pain 7/10; 20:30 BP 155 / 60; Pulse 78; Resp 14; Pulse Ox 99% on R/A; Pain 5/10; ls4 20:29 Body Mass Index 28.73 (93.44 kg, 180.34 cm) aj1 MDM: 21:22 Patient medically screened. [facility] 22:25 Data reviewed: vital signs, nurses notes. Data interpreted: Pulse oximetry: on room air snw is 96 %. Interpretation: acceptable. Response to treatment: the patient's symptoms have mildly improved after treatment. Special discussion: I have referred the patient to see his PCP for further evaluation of high blood pressure. Based on the history and exam findings, there is no indication for further emergent testing or inpatient evaluation. I discussed with the patient/guardian the need to see the orthopedic surgeon for further evaluation of the symptoms. I discussed with the patient/guardian the need to see the primary care provider for further evaluation of the symptoms. 11/22 20:31 Order name: XRAY Forearm RIGHT aj1 11/22 22:14 Order name: Sling; Complete Time: 22:30 snw Administered Medications: 22:10 Drug: TORadol 60 mg Route: IM; Site: right deltoid; ls4 22:34 Follow up: Response: No adverse reaction vc 22:34 Drug: Hibiclens 4 % 1 application Route: Topical; Site: right forearm; vc Disposition: 11/23 07:55 Co-signature as Attending Physician, Kamaljit Rod MD I agree with the assessment and [facility] plan of care. Disposition: 11/23/19 22:15 Discharged to Home. Impression: Fall on same level, unspecified, Abrasion of right upper arm, Contusion of right upper arm. - Condition is Stable. - Discharge Instructions: Abrasion, Contusion, Fall Prevention in the Home, RICE for Routine Care of Injuries, How to Use a Sling. - Prescriptions for Keflex 500 mg Oral Capsule - take 1 capsule by ORAL route every 8 hours for 10 days; 30 capsule. Diclofenac Sodium 75 mg Oral Tablet Sustained Release - take 1 tablet by ORAL route 2 times per day; 30 tablet. - Work release form, Medication Reconciliation Form, Thank You Letter, Antibiotic Education, Prescription Opioid Use form. - Follow up: Emergency Department; When: As needed; Reason: Worsening of condition. Follow up: Private Physician; When: 2 - 3 days; Reason: Recheck today's complaints, Continuance of care, Re-evaluation by your physician. Signatures: Dispatcher [employer] EDSusana Coffey RN RN ajKamaljit Yao MD MD cha Therrien, Shelly, [employer] Michelle Linares RN RN ls4 Rupa Clifford RN RN vc Corrections: (The following items were deleted from the chart) 11/22 22:35 22:15 11/23/2019 22:15 Discharged to Home. Impression: Fall on same level, unspecified; vc Abrasion of right upper arm; Contusion of right upper arm. Condition is Stable. Forms are Medication Reconciliation Form, Thank You Letter, Antibiotic Education, Prescription Opioid Use. Follow up: Emergency Department; When: As needed; Reason: Worsening of condition. Follow up: Private Physician; When: 2 - 3 days; Reason: Recheck today's complaints, Continuance of care, Re-evaluation by your physician. snw
[2019-11-23 22:48] VITALS: TEMP 97.8
[2019-11-23 22:49] VITALS: BP 155/60; O2SAT 99
--- NOTE | 2019-11-24 08:19 | RAD REPORT ---
EXAM DESCRIPTION: RAD - Forearm Right - 11/23/2019 9:08 pm CLINICAL HISTORY: PAIN, fall with blunt force trauma to the arm COMPARISON: No comparisons FINDINGS: No fracture is identified. There is no dislocation or periosteal reaction noted. No foreign body or other soft tissue abnormality. Patient has minimal marginal spurring at the elbow joint. IMPRESSION: Negative right forearm for acute finding.
== END 2019-11-23 22:35 | disposition home or self-care (01) ==
LOC: ER 20:21
DX: S50.811A Abrasion of right forearm, initial encounter (principal); S40.021A Contusion of right upper arm, initial encounter; W18.30XA Fall on same level, unspecified, initial encounter; Y93.9 Activity, unspecified; Y92.89 Other specified places as the place of occurrence of the external cause; I10 Essential (primary) hypertension
CPT/HCPCS: 96372; 99283

== ENCOUNTER 2021-04-02 08:38 | Day surgery (SDC) | payer OTHER ==
[2021-04-02] MEDS ORDERED: CEFAZOLIN/SWI 2gm 2 GM/20 ML SYR ONE (10:34)
[2021-04-02] MEDS ORDERED: Ringers Lactate 1,000 ML IV ONE ×2 (10:34→15:46)
[2021-04-02] MEDS ORDERED: LABETALOL 20 MG/4ML SYRINGE IV ONE (11:04)
[2021-04-02] MEDS ORDERED: ACETAMINOPHEN 500 MG TAB ONE (11:05)
[2021-04-02] MEDS ORDERED: CELECOXIB 100 MG CAPSULE ONE (11:05)
[2021-04-02] MEDS ORDERED: LIDOCAINE 1% MPF 5 ML VIAL ONE (13:41)
[2021-04-02] MEDS ORDERED: MIDAZOLAM HCL 2 MG/2 ML INJ ONE (13:41)
[2021-04-02] MEDS ORDERED: FENTANYL CITR 100 MCG/2 ML ONE (13:41)
[2021-04-02] MEDS ORDERED: propofoL 200 MG/20 ML VIAL IV ONE ×2 (13:41→14:23)
[2021-04-02] MEDS ORDERED: BUPIVACAINE 0.25% PF 30 ML VIAL ONE (13:56)
[2021-04-02] MEDS ORDERED: ONDANSETRON 4 MG/2 ML VIAL ONE (15:00)
[2021-04-02] MEDS ORDERED: KETOROLAC 30 MG/ML INJ ONE (15:00)
--- NOTE | 2021-04-02 15:03 | P.OP ---
Preoperative diagnosis: LEFT incarcerated inguinal hernia Postoperative diagnosis: LEFT incarcerated inguinal hernia Primary procedure: Open LEFT inguinal hernia repair with mesh Anesthesia: GETA + Local Estimated blood loss: <5cc Specimen: Cord Lipoma Findings: Indirect Fat containing incarcerated inguinal henria Complications: None Implants: Medium Bard Plug and Patch Hernia Repair system Transferred to: Recovery Room Condition: Good
[2021-04-02] MEDS: FENTANYL CITR 100 MCG/2 ML ONE ×2 (15:18→15:23)
[2021-04-02] MEDS ORDERED: TAMSULOSIN 0.4 MG SR CAP PO PRN (15:20)
[2021-04-02] MEDS: HYDROMORPHONE HCL 1 MG/ML INJ ONE ×2 (15:32→15:53)
--- NOTE | 2021-04-02 16:51 | OP ---
Date of Procedure: 04/02/2021 Surgeon: Ama Quijano MD, Preoperative Diagnosis: Incarcerated left inguinal hernia. Postoperative Diagnosis: Incarcerated left inguinal hernia. Procedure: Open left inguinal hernia repair with mesh. Anesthesia: General endotracheal plus local with 0.25% Marcaine. Estimated Blood Loss: Less than 5 mL. Specimen: Cord lipoma. Findings: Indirect fat containing incarcerated inguinal hernia on the left. Complications: None. Implants: Bard medium Plug and Patch hernia repair system. Disposition: The patient transferred to recovery room in good condition. Procedure In Detail: After informed consent was obtained, the patient was brought to the operating r oom, prepped and draped in the usual sterile fashion. After adequate anesthesia was achieved, an are a of the left inguinal region was anesthetized with 0.25% Marcaine, sharply incised with a 15 blade d own through subcutaneous tissues, electrocautery was used to dissect down through Camper's fat and Sc arpa's fascia to expose the external oblique aponeurosis. After this was exposed, a small farnaz incis ion was made in the external oblique aponeurosis with a 15 blade. I then used Metzenbaum scissors to open the external oblique aponeurosis in its entirety protecting the ilioinguinal iliohypogastric ne rve throughout. At this point, the spermatic cord and structures were encircled with a Manson drain . The hernia was found to be in an indirect position coming off the medial aspect with fat contained . It was very difficult to reduce at this point, essentially irreducible at this point. I open the hernia sac and removed a small portion of fat and returned to the preperitoneal space. At this point , I sized the hernia and found that a medium hernia plug to be appropriate to this position. I then brought the hernia plug system and hydrated appropriately and placed in the preperitoneal space, unfu rled at this point and brought the outer leaflets on the outer aspect and secured it circumferentiall y around the ring using 2-0 PDS sutures with good apposition of the tissues. At this point, I irriga ama the area copiously and dried it at this point. I then brought in the hernia patch system, sized it appropriately and placed it on the floor of the inguinal canal reconstructing around the spermatic cord and structures. At this point, I secured it to the medial aspect using a 2-0 PDS in the pubic tubercle and then on the medial edge of the internal oblique aponeurosis and the underside of the ing uinal ligament laterally and then ultimately reconstructed the inguinal ring on the deep aspect after trimming the mesh appropriately. I then irrigated the area once again and closed the external obliq ue aponeurosis with a 3-0 Vicryl in a running fashion. I then closed the Maame's fascia and deep de rmal plane en bloc using a 3-0 Vicryl suture and skin was closed with 4-0 Monocryl in a running fashi on. Dermabond was placed over top. The patient tolerated the procedure well without evidence of com plication and transferred to PACU in good condition. All counts were correct at the end of the case. KESHA/KEIRA Voice ID: [id number] Report ID: [id number]
[2021-04-02] MEDS ORDERED: HYDROCODONE/APAP 10/325 TAB ONE (17:55)
[2021-04-02 17:59] VITALS: TEMP 97.4
[2021-04-02 18:01] VITALS: BP 143/80; O2SAT 98
== END 2021-04-02 17:50 | disposition home or self-care (01) ==
LOC: OR 08:38
PROVIDERS: ATTEND Surgery
PROC: 0YU60JZ Supplement Left Inguinal Region with Synthetic Substitute, Open Approach (ICD-10-PCS; principal; 2021-04-02 11:45)
DX: K40.90 Unilateral inguinal hernia, without obstruction or gangrene, not specified as recurrent (principal); K40.30 Unilateral inguinal hernia, with obstruction, without gangrene, not specified as recurrent
CPT/HCPCS: 88302; 49507; J2704 ×2; J2250; J3010 ×2; J1170; J0690; J7120 ×2; J2405

== ENCOUNTER 2022-01-28 12:09 | Emergency (ER) | payer OTHER ==
--- OUTSIDE RECORDS SUMMARY | 2022-01-28 12:14 | XMS REPORT | Continuity of Care Document ---
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 Mixed Mixed Problem Active Common hyperlipid hyperlipid Sp bria emia emia [facility] GERD GERD Problem Active Common without without Spirit esophagiti esophagiti [facility] s s [facility] Hepatitis, Hepatitis, Problem Active C ommon chronic chronic [facility] Allergies, Adverse Reactions, Alerts Allergy Allergy Status Severity Reaction(s) Onset Inactive Treating Comm ents Source Name Type Date Date Clinician No Known DA Active U [facility] Allergie 05-18 [place] [facility] 00:00: [address] Medications Ordered Filled Start Stop Current Ordering Indication Dosage Frequency Signature Comments Components Source Medication Medication Date Date Medication? Clinician (SIG) Name Name ProAir HFA ProAir HFA Yes Valentino 2 puffs as Common 03-07 [facility] needed Spirit 00:00: [facility] Benzonatate Benzonatate 2018- No Valentino 1 capsule Common 03-07 [facility] 00:00: [facility] - [facility]00 [facility] Azithromyci Azithromyci 2018- No Valentino as Common n n 03-07 Beebe directed [facility] 00:00: 00:00 - [facility] :00 [facility] Celecoxib Celecoxib Yes Valentino 1 capsule Common Beebe with food [facility] Benazepril Benazepril Yes Valentino 1 tablet Common HCl HCl [facility] Omeprazole Omeprazole Yes Valentino 1 capsule Common Beebe [facility] Centrum Centrum Yes Valentino as Common Silver Silver Beebe directed [facility] Allopurinol Allopurinol Yes Valentino 1 tablet Common [facility] Amlodipine Amlodipine Yes Valentino 1 tablet Common Besylate Besylate [facility] Procedures This patient has no known procedures. Encounters Start End Encounter Admission Attending Care Care Encounter Source Date/Time Date/Time Type Type Clinicians Facility Department ID 2019-04-03 2019-04-03 Outpatient Yolanda Guerrerot [id number] Common 08:11:00 08:11:[address] [employer] [facility] 2018-03-07 2018-03-07 Outpatient Yolanda Guerrerot [id number] Common 13:00:00 13:00:[address] [employer] [facility] Results Test Description Test Time Test Comments Results Result Comments Source - XR CHEST 1V 2019-05-25 Patient Name: 08:16:00 ODELL MOTT Unit No: [id number] EXAMS: CPT CODE: [id number] XR CHEST 1V [id number] EXAMINATION: - XR CHEST 1V. LOCATION: B2. [...] MD CC: Kassandra Francois MD; Cadence Holder GRAPHICS EDIT TECHNICIAN Technologist: Sara Caldwell RT(R) Transcrpt Date/Tm/Trnsp: 05/25/2019 (0816) [email or web address] Orig Print D/T: S: 05/25/2019 (0819) [facility] NAME: ODELL MOTT [address] PHYS: SYED.Yvonne - [place] [address] : 1955 AGE: 63 SEX: M LOC: ZTiara A PHONE #: [phone] EXAM DATE: 05/25/2019 STATUS: ADM IN FAX #: [phone] RADIOLOGY NO: PAGE 1 Signed Report BASIC METABOLIC PANEL 2019-05-25 05:30:00 Test Item Value Reference Range Interpretation Comme nts SODIUM (test code = NA) 138 MMOL/L 137-145 N POTASSIUM (test code = K) 3.3 MMOL/L 3.5-5.1 L CHLORIDE (test code = CL) 105 MMOL/L 98-107 N CARBON DIOXIDE (test code = CO2) 28 MMOL/L 22-30 N GLUCOSE (test code = GLU) 105 MG/DL 74-106 N BLOOD UREA NITROGEN (test code = 8 MG/DL 9-20 L BUN) GLOMERULAR FILTRATION RATE (test 51 Reporting units: ml/min/1.73 code = GFR) m2 (Modified M DRD Formula)Referen ce Range: > or = 60 ml/min/1.7 3 m2 CREATININE (test code = CREAT) 1.40 MG/DL 0.66-1.25 H CALCIUM (test code = CA) 9.4 MG/DL 8.4-10.2 N BASIC METABOLIC [id number] 05:29:00 Test Item Value Reference Range Interpretation Comments SODIUM (test code = 138 MMOL/L 137-145 N NA) POTASSIUM (test code = 3.3 MMOL/L 3.5-5.1 L K) CHLORIDE (test code = 105 MMOL/L 98-107 N CL) CARBON DIOXIDE (test MMOL/L 22-30 code = CO2) GLUCOSE (test code = MG/DL 74-106 GLU) BLOOD UREA NITROGEN MG/DL 9-20 (test code = BUN) GLOMERULAR FILTRATION 51 Report ing units: RATE (test code = GFR) ml/mi n/1.73 m2 (Modified MDRD Formula)Referen ce Range: > or = 6 0 ml/min/1.73 m2 CREATININE (test code 1.40 MG/DL 0.66-1.25 H = CREAT) CALCIUM (test code = MG/DL 8.7-9.7 CA) BASIC METABOLIC [id number] 05:27:00 Test Item Value Reference Range Interpretation Comments SODIUM (test code = NA) 138 MMOL/L 137-145 N POTASSIUM (test code = K) 3.3 MMOL/L 3.5-5.1 L CHLORIDE (test code = CL) 105 MMOL/L 98-107 N CARBON DIOXIDE (test code = CO2) MMOL/L 22-30 GLUCOSE (test code = GLU) MG/DL 74-106 BLOOD UREA NITROGEN (test code = MG/DL 9-20 BUN) GLOMERULAR FILTRATION RATE (test code = GFR) CREATININE (test code = CREAT) MG/DL 0.66-1.25 CALCIUM (test code = CA) MG/DL 8.7-9.7 CBC W/AUTO [id number] 05:08:00 Test Item Value Reference Range Interpretation Comments WHITE BLOOD CELL (test code = 10.1 K/MM3 3.8-9.8 H WBC) RED BLOOD CELL (test code = 4.54 M/MM3 3.95-5.67 N RBC) HEMOGLOBIN (test code = HGB) 14.5 G/DL 12.4-16.7 N HEMATOCRIT (test code = HCT) 42.1 % 35.9-49.5 N MEAN CELL VOLUME (test code = 93 fL 81.7-96.1 N MCV) MEAN CELL HGB (test code = MCH) 31.9 pg 27.6-33.2 N MEAN CELL HGB CONCETRATION 34.4 % 32.9-35.5 N (test code = MCHC) RED CELL DISTRIBUTION WIDTH 13.1 % 12.1-15.2 N (test code = RDW) PLATELET COUNT (test code = 224 K/MM3 129-368 N PLT) MEAN PLATELET VOLUME (test code 10.5 fl 7.4-10.4 H = MPV) NEUTROPHIL % (test code = NT%) 65.6 % 43-75 N IMMATURE GRANULOCYTE % (test 0.3 % 0.0-2.0 N code = IG%) LYMPHOCYTE % (test code = LY%) 22.0 % 14-44 N MONOCYTE % (test code = MO%) 9.1 % 4-13 N EOSINOPHIL % (test code = EO%) 2.3 % 0-6 N BASOPHIL % (test code = BA%) 0.7 % 0-2 N NUCLEATED RBC % (test code = 0.0 % 0-1.0 N NRBC%) NEUTROPHIL # (test code = NT#) 6.63 K/mm3 2.0-7.6 N IMMATURE GRANULOCYTE # (test 0.03 x10 3/uL 0-0.03 N code = IG#) LYMPHOCYTE # (test code = LY#) 2.22 K/mm3 1.0-3.8 N MONOCYTE # (test code = MO#) 0.92 K/mm3 0.1-0.8 H EOSINOPHIL # (test code = EO#) 0.23 K/mm3 0.0-0.2 H BASOPHIL # (test code = BA#) 0.07 K/mm3 0.0-0.2 N NUCLEATED RBC # (test code = 0.00 K/mm3 0.0-0.1 N NRBC#) - XR CHEST [id number] 08:07:00 Patient Name: ODELL MOTT Unit No: [id number] EXAMS: CPT CODE: [id number] XR CHEST 1V 42233 EXAMINATION: - XR CHEST 1V. LOCATION: B2. [...] Baez MD CC: Kassandra Francois MD;Cadence Holder GRAPHICS EDIT TECHNICIAN Technologist: Sara Caldwell RT(R) Transcrpt Date/Tm/Trnsp: 05/24/2019 (0807) [email or web address] Orig Print D/T: S: 05/24/2019 (0810) [facility] NAME: ODELL MOTT [address] PHYS: SYED.01 - Gallo,[place] [address] : 1955 AGE: 63 SEX: M LOC: Z.362 A PHONE #: [phone] EXAM DATE: 05/24/2019 STATUS: ADM IN FAX #: [phone] RADIOLOGY NO: PAGE 1 Signed ReportBASIC METABOLIC [id number] 05:58:00 Test Item Value Reference Range Interpretation Comments SODIUM (test code = 140 MMOL/L 137-145 N NA) POTASSIUM (test code = 3.0 MMOL/L 3.5-5.1 L K) CHLORIDE (test code = 104 MMOL/L 98-107 N CL) CARBON DIOXIDE (test 29 MMOL/L 22-30 N code = CO2) ANION GAP (test code = 10 MMOL/L 14-24 L GAP) GLUCOSE (test code = 114 MG/DL 74-106 H GLU) BLOOD UREA NITROGEN 9 MG/DL 9-20 N (test code = BUN) GLOMERULAR FILTRATION 47 Report ing units: RATE (test code = GFR) ml/mi n/1.73 m2 (Modified MDRD Formula)Referen ce Range: > or = 6 0 ml/min/1.73 m2 CREATININE (test code 1.50 MG/DL 0.66-1.25 H = CREAT) CALCIUM (test code = 9.1 MG/DL 8.4-10.2 N CA) CBC W/AUTO [id number] 05:38:00 Test Item Value Reference Range Interpretation Comments WHITE BLOOD CELL (test code = 9.3 K/MM3 3.8-9.8 N WBC) RED BLOOD CELL (test code = 4.52 M/MM3 3.95-5.67 N RBC) HEMOGLOBIN (test code = HGB) 14.2 G/DL 12.4-16.7 N HEMATOCRIT (test code = HCT) 42.5 % 35.9-49.5 N MEAN CELL VOLUME (test code = 94 fL 81.7-96.1 N MCV) MEAN CELL HGB (test code = MCH) 31.4 pg 27.6-33.2 N MEAN CELL HGB CONCETRATION 33.4 % 32.9-35.5 N (test code = MCHC) RED CELL DISTRIBUTION WIDTH 13.0 % 12.1-15.2 N (test code = RDW) PLATELET COUNT (test code = 225 K/MM3 129-368 N PLT) MEAN PLATELET VOLUME (test code 10.7 fl 7.4-10.4 H = MPV) NEUTROPHIL % (test code = NT%) 63.7 % 43-75 N IMMATURE GRANULOCYTE % (test 0.4 % 0.0-2.0 N code = IG%) LYMPHOCYTE % (test code = LY%) 22.0 % 14-44 N MONOCYTE % (test code = MO%) 11.6 % 4-13 N EOSINOPHIL % (test code = EO%) 1.5 % 0-6 N BASOPHIL % (test code = BA%) 0.8 % 0-2 N NUCLEATED RBC % (test code = 0.0 % 0-1.0 N NRBC%) NEUTROPHIL # (test code = NT#) 5.95 K/mm3 2.0-7.6 N IMMATURE GRANULOCYTE # (test 0.04 x10 3/uL 0-0.03 H code = IG#) LYMPHOCYTE # (test code = LY#) 2.05 K/mm3 1.0-3.8 N MONOCYTE # (test code = MO#) 1.08 K/mm3 0.1-0.8 H EOSINOPHIL # (test code = EO#) 0.14 K/mm3 0.0-0.2 N BASOPHIL # (test code = BA#) 0.07 K/mm3 0.0-0.2 N NUCLEATED RBC # (test code = 0.00 K/mm3 0.0-0.1 N NRBC#) BASIC METABOLIC [id number] 09:05:00 Test Item Value Reference Range Interpretation Comments SODIUM (test code = 139 MMOL/L 137-145 N NA) POTASSIUM (test code = 3.2 MMOL/L 3.5-5.1 L K) CHLORIDE (test code = 106 MMOL/L 98-107 N CL) CARBON DIOXIDE (test 27 MMOL/L 22-30 N code = CO2) GLUCOSE (test code = 119 MG/DL 74-106 H GLU) BLOOD UREA NITROGEN 11 MG/DL 9-20 N (test code = BUN) GLOMERULAR FILTRATION > 60 Report ing units: RATE (test code = GFR) ml/mi n/1.73 m2 (Modified MDRD Formula)Referen ce Range: > or = 6 0 ml/min/1.73 m2 CREATININE (test code 1.20 MG/DL 0.66-1.25 N = CREAT) CALCIUM (test code = 9.3 MG/DL 8.4-10.2 N CA) UNABLE TO DRAW BLOOD, REASON: TO BE DONE @ 800NOTIFIED PATIENT CARE STAFF: ELLEN 05/23/19 AT 0413BY Caro ReneeCBC W/AUTO [id number] 08:43:00 Test Item Value Reference Range Interpretation Comments WHITE BLOOD CELL (test code = 9.1 K/MM3 3.8-9.8 N WBC) RED BLOOD CELL (test code = 4.69 M/MM3 3.95-5.67 N RBC) HEMOGLOBIN (test code = HGB) 14.8 G/DL 12.4-16.7 N HEMATOCRIT (test code = HCT) 44.1 % 35.9-49.5 N MEAN CELL VOLUME (test code = 94 fL 81.7-96.1 N MCV) MEAN CELL HGB (test code = MCH) 31.6 pg 27.6-33.2 N MEAN CELL HGB CONCETRATION 33.6 % 32.9-35.5 N (test code = MCHC) RED CELL DISTRIBUTION WIDTH 13.1 % 12.1-15.2 N (test code = RDW) PLATELET COUNT (test code = 224 K/MM3 129-368 N PLT) MEAN PLATELET VOLUME (test code 10.5 fl 7.4-10.4 H = MPV) NEUTROPHIL % (test code = NT%) 63.7 % 43-75 N IMMATURE GRANULOCYTE % (test 0.2 % 0.0-2.0 N code = IG%) LYMPHOCYTE % (test code = LY%) 22.2 % 14-44 N MONOCYTE % (test code = MO%) 11.4 % 4-13 N EOSINOPHIL % (test code = EO%) 1.8 % 0-6 N BASOPHIL % (test code = BA%) 0.7 % 0-2 N NUCLEATED RBC % (test code = 0.0 % 0-1.0 N NRBC%) NEUTROPHIL # (test code = NT#) 5.78 K/mm3 2.0-7.6 N IMMATURE GRANULOCYTE # (test 0.02 x10 3/uL 0-0.03 N code = IG#) LYMPHOCYTE # (test code = LY#) 2.01 K/mm3 1.0-3.8 N MONOCYTE # (test code = MO#) 1.03 K/mm3 0.1-0.8 H EOSINOPHIL # (test code = EO#) 0.16 K/mm3 0.0-0.2 N BASOPHIL # (test code = BA#) 0.06 K/mm3 0.0-0.2 N NUCLEATED RBC # (test code = 0.00 K/mm3 0.0-0.1 N NRBC#) UNABLE TO DRAW BLOOD, REASON: TO BE DONE @ 800 NOTIFIED PATIENT CARE STAFF: ELLEN 05/23/19 AT 0414 BY Caro Renee- XR CHEST [id number] 07:55:00 Patient Name: ODELL MOTT Unit No: [id number] EXAMS: CPT CODE: [id number] XR CHEST 1V 49967 EXAMINATION: - XR CHEST 1V. LOCATION: B2. HISTORY: follow up. COMPARISON: Radiograph dated 05/21/2019. TECHNIQUE: Single AP view of the chest was obtained. FINDINGS: The heart is normal in size. Small bilateral pleural effusions are present, unchanged. No acute osseous abnormality is identified. IMPRESSION: Small bilateral pleural effusions, unchanged. at 0755 Reported and signedby: Zion Baez MD CC: Kassandra Francois MD; Cadence Holder NP Technologist: RT Livia(R) Transcrpt Date/Tm/Trnsp: 05/23/2019 (0755) [email or web address] Orig Print D/T: S: 05/23/2019 (0758) [facility] NAME: ODELL MOTT [address] PHYS: SYED.01 - [place] [address] : 1955 AGE: 63 SEX: M LOC: KANDIS Starks PHONE #: [phone] EXAM DATE: 05/23/2019 STATUS: ADM IN FAX #: [phone] NO: PAGE 1 Signed ReportBASIC METABOLIC [id number] 11:37:00 Test Item Value Reference Range Interpretation Comments SODIUM (test code = 141 MMOL/L 137-145 N NA) POTASSIUM (test code = 3.6 MMOL/L 3.5-5.1 N K) CHLORIDE (test code = 107 MMOL/L 98-107 N CL) CARBON DIOXIDE (test 25 MMOL/L 22-30 N code = CO2) GLUCOSE (test code = 90 MG/DL 74-106 N GLU) BLOOD UREA NITROGEN 13 MG/DL 9-20 N (test code = BUN) GLOMERULAR FILTRATION > 60 Report ing units: RATE (test code = GFR) ml/mi n/1.73 m2 (Modified MDRD Formula)Referen ce Range: > or = 6 0 ml/min/1.73 m2 CREATININE (test code 1.00 MG/DL 0.66-1.25 N = CREAT) CALCIUM (test code = 9.6 MG/DL 8.4-10.2 N CA) CBC W/AUTO [id number] 11:17:00 Test Item Value Reference Range Interpretation Comments WHITE BLOOD CELL (test code = 10.4 K/MM3 3.8-9.8 H WBC) RED BLOOD CELL (test code = 4.81 M/MM3 3.95-5.67 N RBC) HEMOGLOBIN (test code = HGB) 15.4 G/DL 12.4-16.7 N HEMATOCRIT (test code = HCT) 46.0 % 35.9-49.5 N MEAN CELL VOLUME (test code = 96 fL 81.7-96.1 N MCV) MEAN CELL HGB (test code = MCH) 32.0 pg 27.6-33.2 N MEAN CELL HGB CONCETRATION 33.5 % 32.9-35.5 N (test code = MCHC) RED CELL DISTRIBUTION WIDTH 13.2 % 12.1-15.2 N (test code = RDW) PLATELET COUNT (test code = 210 K/MM3 129-368 N PLT) MEAN PLATELET VOLUME (test code 10.7 fl 7.4-10.4 H = MPV) NEUTROPHIL % (test code = NT%) 67.6 % 43-75 N IMMATURE GRANULOCYTE % (test 0.3 % 0.0-2.0 N code = IG%) LYMPHOCYTE % (test code = LY%) 20.1 % 14-44 N MONOCYTE % (test code = MO%) 9.8 % 4-13 N EOSINOPHIL % (test code = EO%) 1.5 % 0-6 N BASOPHIL % (test code = BA%) 0.7 % 0-2 N NUCLEATED RBC % (test code = 0.0 % 0-1.0 N NRBC%) NEUTROPHIL # (test code = NT#) 7.06 K/mm3 2.0-7.6 N IMMATURE GRANULOCYTE # (test 0.03 x10 3/uL 0-0.03 N code = IG#) LYMPHOCYTE # (test code = LY#) 2.10 K/mm3 1.0-3.8 N MONOCYTE # (test code = MO#) 1.02 K/mm3 0.1-0.8 H EOSINOPHIL # (test code = EO#) 0.16 K/mm3 0.0-0.2 N BASOPHIL # (test code = BA#) 0.07 K/mm3 0.0-0.2 N NUCLEATED RBC # (test code = 0.00 K/mm3 0.0-0.1 N NRBC#) - XR CHEST [id number] 08:57:00 Patient Name: ODELL MOTT Unit No: [id number] EXAMS: CPT CODE: [id number] XR CHEST 1V 11403 Dictation location: B2. CHEST, FRONTAL VIEW HIS TORY: chest pain FINDINGS: Since 05/20/19, the small bilateral pleural effusions, left greater than right are not significantly changed. The lungs are otherwise clear. The heart size is normal. No pneumothorax. The bones are intact. Surgical clips seen in the left paratracheal stripe. IMPRESSION: Stable trace to small bilateral pleural effusions. at 0857 Reported and signed by: Lianne Garza MD CC: Kassandra Francois MD; Madhavi Sarkar NP Technologist: Milton Black, (RT) (R) Transcrpt Date/Tm/Trnsp: 05/21/2019 (856) [email or web address] Orig Print D/T: S: 05/21/2019 (899) [facility] NAME: ODELL MOTT [address] PHYS: VELCH - GuildMadhavi GRAPHICS EDIT TECHNICIAN [place] [id number] : 1955 A GE: 63 SEX: M LOC: Z.SI06 A PHONE #: [phone] EXAM DATE: 05/21/2019 STATUS: ADM IN FAX #: [phone] RADIOLOGY NO: PAGE 1 Signed Report- XR NECK SOFT [id number] 09:06:00 Patient Name: ODELL MOTT Unit No: [id number] EXAMS: CPT CODE: [id number] XR NECK SOFT TISSUE 36196 Dictation location: B2. SOFT TISSUE NECK, 2 [...] Sarkar NP Technologist: Gaby Oliveros (RT)(R) Transcrpt Date/Tm/Trnsp: 05/20/2019 (905) [email or web address] Orig Print D/T: S: 05/20/2019 (09) [facility] NAME: ODELL MOTT [address] PHYS: VELCH - Guild,Madhavi GRAPHICS [place] [address] : 1955 AGE: 63 SEX: M LOC: Z.SI06 A PHONE #: [phone] EXAM DATE: 05/20/2019 STATUS: ADM IN FAX #: [phone] RADIOLOGY NO: PAGE 1 Signed Report- XR CHEST 2 [id number] 09:00:00 Patient Name: ODELL MOTT Unit No: [id number] EXAMS: CPT CODE: [id number] XR CHEST 2 V 34916 Dictation location: L11. CHEST, FRONTAL AND LATERAL [...] Sarkar NP Technologist: Gaby Oliveros (RT)(R) Transcrpt Date/Tm/Trnsp: 05/20/2019 (0900) [email or web address] Orig Print D/T: S: 05/20/2019 (0903) [facility] NAME: ODELL MOTT [address] PHYS: [place] [address] : 1955 AGE: 63 SEX: M LOC: KahlilSI06 A PHONE #: [phone] EXAM DATE: 05/20/2019 STATUS: ADM IN FAX #: [phone] RADIOLOGY NO: PAGE 1 Signed ReportVANCOMYCIN [id number] 06:15:00 Test Item Value Reference Range Interpretation Comments VANCOMYCIN TROUGH (test code = 11.8 UG/ML 10.0-20.0 N VANCT) PER NURSE FIORAD DRAW THE VANCO WITH AM LABSBASIC METABOLIC [id number] 05:15:00 Test Item Value Reference Range Interpretation Comments SODIUM (test code = 138 MMOL/L 137-145 N NA) POTASSIUM (test code = 3.7 MMOL/L 3.5-5.1 N K) CHLORIDE (test code = 106 MMOL/L 98-107 N CL) CARBON DIOXIDE (test 26 MMOL/L 22-30 N code = CO2) GLUCOSE (test code = 112 MG/DL 74-106 H GLU) BLOOD UREA NITROGEN 14 MG/DL 9-20 N (test code = BUN) GLOMERULAR FILTRATION > 60 Report ing units: RATE (test code = GFR) ml/mi n/1.73 m2 (Modified MDRD Formula)Referen ce Range: > or = 6 0 ml/min/1.73 m2 CREATININE (test code 0.90 MG/DL 0.66-1.25 N = CREAT) CALCIUM (test code = 8.9 MG/DL 8.4-10.2 N CA) CBC W/AUTO [id number] 04:57:00 Test Item Value Reference Range Interpretation Comments WHITE BLOOD CELL (test code = 12.3 K/MM3 3.8-9.8 H WBC) RED BLOOD CELL (test code = 4.67 M/MM3 3.95-5.67 N RBC) HEMOGLOBIN (test code = HGB) 15.1 G/DL 12.4-16.7 N HEMATOCRIT (test code = HCT) 44.2 % 35.9-49.5 N MEAN CELL VOLUME (test code = 95 fL 81.7-96.1 N MCV) MEAN CELL HGB (test code = MCH) 32.3 pg 27.6-33.2 N MEAN CELL HGB CONCETRATION 34.2 % 32.9-35.5 N (test code = MCHC) RED CELL DISTRIBUTION WIDTH 13.4 % 12.1-15.2 N (test code = RDW) PLATELET COUNT (test code = 191 K/MM3 129-368 N PLT) MEAN PLATELET VOLUME (test code 10.9 fl 7.4-10.4 H = MPV) NEUTROPHIL % (test code = NT%) 72.5 % 43-75 N IMMATURE GRANULOCYTE % (test 0.3 % 0.0-2.0 N code = IG%) LYMPHOCYTE % (test code = LY%) 14.8 % 14-44 N MONOCYTE % (test code = MO%) 10.9 % 4-13 N EOSINOPHIL % (test code = EO%) 0.9 % 0-6 N BASOPHIL % (test code = BA%) 0.6 % 0-2 N NUCLEATED RBC % (test code = 0.0 % 0-1.0 N NRBC%) NEUTROPHIL # (test code = NT#) 8.93 K/mm3 2.0-7.6 H IMMATURE GRANULOCYTE # (test 0.04 x10 3/uL 0-0.03 H code = IG#) LYMPHOCYTE # (test code = LY#) 1.83 K/mm3 1.0-3.8 N MONOCYTE # (test code = MO#) 1.34 K/mm3 0.1-0.8 H EOSINOPHIL # (test code = EO#) 0.11 K/mm3 0.0-0.2 N BASOPHIL # (test code = BA#) 0.08 K/mm3 0.0-0.2 N NUCLEATED RBC # (test code = 0.00 K/mm3 0.0-0.1 N NRBC#) - XR CHEST [id number] 21:29:00 Patient Name: ODELL MOTT Unit No: [id number] EXAMS: CPT CODE: [id number] XR CHEST 1V 73855 - XR CHEST 1V, 05/19/2019 8:47 PM Reason For Examination: esophageal tear Comparison: CT neck performed yesterday Location: R16 Findings LUNGS: No definite pulmonary edema or consolidation, although exam findings limited by low lung volumes PLEURA: No pleural effusions CARDIOMEDIASTINAL SILHOUETTE Unremarkable Curvilinear density seen within the partially visualized neck as demonstrated on prior CT IMPRESSION: No consolidation or effusion or edema. at 212 Reported and signed by: Luigi Cain CC: Kassandra Francois MD; Madhavi Sarkar NP Technologist: Maya Farfan (RT)(R) Transcrpt Date/Tm/Trnsp: 05/19/2019 (2128) [email or web address] Orig Print D/T: S: 05/19/2019 (2132) [facility] NAME: ODELL MOTT [address] PHYS: [place] [address] : 1955 AGE: 63 SEX: M LOC: Z.SI06 A PHONE #: [phone] EXAM DATE: 05/19/2019 STATUS: ADM IN FAX #: [phone] RADIOLOGY NO: PAGE 1 Signed Report- XR [id number] 16:36:00 Patient Name: ODELL MOTT Unit No: [id number] EXAMS: CPT CODE: [id number] XR ESOPHAGUS 94117 EXAM: Contrast esophagram Dictation location: B2 I NDICATION: History of Zenker's diverticulum treated endoscopically. Evaluate for perforation. COMPARISON: [...] the inferior margin of this Zenker's diverticulum. at 1636 Reported and signed by: Rolando Shelby MD CC: Kassandra Francois MD; Madhavi Sarkar NP Technologist: Rocio Child, RT (R) Transcrpt Date/Tm/Trnsp: 05/19/2019 ([id number]) [email or web address] Orig Print D/T: S: 05/19/2019 (6571) [facility] NAME: ODELL MOTT [address] PHYS: [place] [address] : 1955 AGE: 63 SEX: M LOC: [id number] A PHONE #: [phone] EXAM DATE: 05/19/2019 STATUS: ADM IN FAX #: [phone] RADIOLOGY NO: PAGE 1 Signed ReportCOMPREHENSIVE METABOLIC [id number] 10:34:00 Test Item Value Reference Range Interpretation Comments SODIUM (test code = NA) 139 MMOL/L 137-145 N POTASSIUM (test code = 3.8 MMOL/L 3.5-5.1 N K) CHLORIDE (test code = 104 MMOL/L 98-107 N CL) CARBON DIOXIDE (test 23 MMOL/L 22-30 N code = CO2) ANION GAP (test code = 16 MMOL/L 14-24 N GAP) GLUCOSE (test code = 109 MG/DL 74-106 H GLU) BLOOD UREA NITROGEN 15 MG/DL 9-20 N (test code = BUN) GLOMERULAR FILTRATION > 60 Report ing units: RATE (test code = GFR) ml/mi n/1.73 m2 (Modified MDRD Formula)Referen ce Range: > or = 6 0 ml/min/1.73 m2 CREATININE (test code = 0.80 MG/DL 0.66-1.25 N CREAT) TOTAL PROTEIN (test 7.3 G/DL 6.2-7.6 N code = PROT) ALBUMIN (test code = 4.1 G/DL 3.5-5.0 N ALB) CALCIUM (test code = 9.3 MG/DL 8.4-10.2 N CA) BILIRUBIN TOTAL (test 1.5 MG/DL 0.2-1.3 H code = BILT) SGOT/AST (test code = 33 UNITS/L 17-59 AST) SGPT/ALT (test code = 31 UNITS/L 21-72 N ALT) ALKALINE PHOSPHATASE 53 UNITS/L 38-126 N (test code = ALKP) [id number] 10:34:00 Test Item Value Reference Range Interpretation Comments MAGNESIUM (test code = MAG) 2.1 MG/DL 1.6-2.3 N CBC W/O [id number] 10:15:00 Test Item Value Reference Range Interpretation Comments WHITE BLOOD CELL (test code = 17.1 K/MM3 3.8-9.8 H WBC) RED BLOOD CELL (test code = 5.04 M/MM3 3.95-5.67 N RBC) HEMOGLOBIN (test code = HGB) 16.1 G/DL 12.4-16.7 N HEMATOCRIT (test code = HCT) 46.9 % 35.9-49.5 N MEAN CELL VOLUME (test code = 93 fL 81.7-96.1 N MCV) MEAN CELL HGB (test code = MCH) 31.9 pg 27.6-33.2 N MEAN CELL HGB CONCETRATION 34.3 % 32.9-35.5 N (test code = MCHC) RED CELL DISTRIBUTION WIDTH 13.2 % 12.1-15.2 N (test code = RDW) PLATELET COUNT (test code = 196 K/MM3 129-368 N PLT) NEUTROPHIL # (test code = NT#) 12.81 K/mm3 2.0-7.6 H IMMATURE GRANULOCYTE # (test 0.09 x10 3/uL 0-0.03 H code = IG#) LYMPHOCYTE # (test code = LY#) 2.82 K/mm3 1.0-3.8 N MONOCYTE # (test code = MO#) 1.32 K/mm3 0.1-0.8 H EOSINOPHIL # (test code = EO#) 0.02 K/mm3 0.0-0.2 N BASOPHIL # (test code = BA#) 0.08 K/mm3 0.0-0.2 N NUCLEATED RBC # (test code = 0.00 K/mm3 0.0-0.1 N NRBC#) [id number] 05:22:00 Test Item Value Reference Range Interpretation Comments TROPONIN-I (test code = TROPI) < 0.012 NG/ML 0.012-0.033 L - CTA [id number] 00:53:00 Patient Name: ODELL MOTT Unit No: [id number] EXAMS: CPT CODE: [id number] CTA CHEST 99541 AFTER HOURS SERVICE ON: 05/19/2019 12:48 AM [...] IV contrast. Delayed scans were also obtained. [facility] NAME: ODELL MOTT [address] PHYS: 04 - [place] [address] : 1955 AGE: 63 SEX: M LOC: Z.ERS PHONE #: [phone] EXAM DATE: 05/19/2019 STATUS: REG ER FAX #: [phone] RAD #: D/C DT PAGE 1 Signed Report (CONTINUED) Patient Name: ODELL MOTT Unit No: [id number] EXAMS: CPT CODE: [id number] CTA CHEST 78920 <Continued> One or more of the following dose reduction techniques were used: Automated exposure control, adjustment of the mA and/or kV according to patient size, and/or utilization of iterative reconstruction technique. Findings: LIVER: No significant findings. GALLBLADDER/BILIARY: No significant findings. PANCREAS: No signi ficant findings. SPLEEN: No significant findings. ADRENALS: No [...] DO Technologist: Tod Monzon, RT(R)(CT) CTDI: DLP: Trnscrpt: 05/19/2019 (0053) [email or web address] [facility] NAME: ODELL MOTT [id number] PHYS: [place] [address] : 1955 AGE: 63 SEX: M LOC: disco volante PHONE #: [phone] EXAM DATE: 05/19/2019 STATUS: REG ER FAX #: [phone] RAD #: D/C DT PAGE 2 Signed Report Patient Name: ODELL MOTT Unit No: [id number] EXAMS: CPT CODE: [id number] CTA CHEST 92290 <Continued> Orig Print D/T: S: 05/19/2019 (0056) [facility] NAME: ODELL MOTT PHYS: [place] [address] : 0 1955 AGE: 63 SEX: M LOC: disco volante PHONE #: [phone] EXAM DATE: 05/19/2019 STATUS: REG ER FAX #: [phone] RAD #: D/C DT PAGE 3 Signed Report- CT ABD PELVIS [id number] 00:53:00 Patient Name: ODELL MOTT Unit No: [id number] EXAMS: CPT CODE: [id number] CT ABD PELVIS W/CONT 93712 AFTER HOURS SERVICE ON: 05/19/2019 12:48 AM [...] IV contrast. Delayed scans were also obtained. [facility] NAME: ODELL MOTT [id number] PHYS: ELIOT.Lillian - [place] [address] : 1955 AGE: 63 SEX: M LOC: ZPatriziaERS PHONE #: [phone] EXAM DATE: 05/19/2019 STATUS: REG ER FAX #: [phone] RAD #: D/C DT PAGE 1 Signed Report (CONTINUED) Patient Name: ODELL MOTT Unit No: [id number] EXAMS: CPT CODE: [id number] CT ABD PELVIS W/CONT 02138 <Continued> One or more of the following [...] M.D. CC: Kelli Beebe DO Technologist: Tod Monzon RT(R)(CT) CTDI: DLP: Trnscrpt: 05/19/2019 (0053) [email or web address] [facility] NAME: ODELL MOTT [id number] [address] PHYS: [email or web address] - [place] [address] : 1955 AGE: 63 SEX: M LOC: SUMAYA PHONE #: [phone] EXAM DATE: 05/19/2019 STATUS: REG ER FAX #: [phone] RAD #: D/C DT PAGE 2 Signed Report Patient Name: ODELL MOTT Unit No: [id number] EXAMS: CPT CODE: [id number] CT ABD PELVIS W/CONT 24015 <Continued> Orig Print D/T: S: 05/19/2019 (0056) [facility] NAME: ODELL MOTT [id number] PHYS: DIDIER - Bee[place] [address] : 0 1955 AGE: 63 SEX: M LOC: Z.ERS PHONE #: [phone] EXAM DATE: 05/19/2019 STATUS: REG ER FAX #: [phone] RAD #: D/C DT PAGE 3 Signed Report- CT NECK W/[id number] 00:48:00 Patient Name: ODELL MOTT Unit No: [id number] EXAMS: CPT CODE: [id number] CT NECK W/CONTRAST 82078 AFTER HOURS SERVICE ON: 05/19/2019 12:37 AM [...] according to patient size, and/or utilization of ite rative reconstruction technique. Findings: There is a contained extraluminal air pockets [...] 0048 Reported andsigned by: Eris Strickland M.D. [facility] NAME: ODELL MOTT PHYS: FR[place]IEG[place] [address] : 1955 AGE: 63 SEX: MACCT NO: [id number] LOC: disco volante PHONE #: [phone] EXAM DATE: 05/19/2019 STATUS: REG ER FAX #: [phone] RAD #: D/C DT PAGE 1 Signed Report (CONTINUED) Patient Name: ODELL MOTT Unit No: [id number] EXAMS: CPT CODE: [id number] CT NECK W/CONTRAST 17513 <Continued> CC: Kelli Beebe DO Technologist: Tod Monzon, (R)(CT) CTDI: DLP: Trnscrpt: 05/19/2019 (0048) [email or web address] [facility] NAME: ODELL MOTT PHYS: [place] [address] : 1955 AGE: 63 SEX: M LOC: disco [place]ante PHONE #: [phone] EXAM DATE: 05/19/2019 STATUS: REG ER FAX #: [phone] RAD #: D/C DT PAGE 2 Signed Report Patient Name: ODELL MOTT Unit No:[id number] EXAMS: CPT CODE: [id number] CTNECK W/CONTRAST 77226 <Continued> Orig Print D/T: S: 05/19/2019 (0051) [facility] NAME: ODELL MOTT PHYS: [place] [address] : 1955 AGE: 63 SEX: M [facility] [id number] LOC: SUMAYA PHONE #: [phone] EXAM DATE: 05/19/2019 STATUS: REG ER FAX #: [phone] RAD #: D/C DT PAGE 3 Signed Report COMPREHENSIVE METABOLIC [id number] 00:04:00 Test Item Value Reference Range Interpretation Comments SODIUM (test code = NA) 137 MMOL/L 137-145 N POTASSIUM (test code = 4.1 MMOL/L 3.5-5.1 N K) CHLORIDE (test code = 101 MMOL/L 98-107 N CL) CARBON DIOXIDE (test 25 MMOL/L 22-30 N code = CO2) GLUCOSE (test code = 114 MG/DL 74-106 H GLU) BLOOD UREA NITROGEN 16 MG/DL 9-20 N (test code = BUN) GLOMERULAR FILTRATION > 60 Report ing units: RATE (test code = GFR) ml/mi n/1.73 m2 (Modified MDRD Formula)Referen ce Range: > or = 6 0 ml/min/1.73 m2 CREATININE (test code = 0.80 MG/DL 0.66-1.25 N CREAT) TOTAL PROTEIN (test 8.4 G/DL 6.2-7.6 H code = PROT) ALBUMIN (test code = 4.8 G/DL 3.5-5.0 N ALB) CALCIUM (test code = 9.9 MG/DL 8.4-10.2 N CA) BILIRUBIN TOTAL (test 1.4 MG/DL 0.2-1.3 H code = BILT) SGOT/AST (test code = 50 UNITS/L 17-59 N AST) SGPT/ALT (test code = 34 UNITS/L 21-72 N ALT) ALKALINE PHOSPHATASE 54 UNITS/L 38-126 N (test code = ALKP) CREATINE KINASE (CK)2019-05-19 00:04:00 Test Item Value Reference Range Interpretation Comments CREATINE KINASE (CK) (test code = 697 UNITS/L 55-170 H CK) NT PRO-BRAIN NATRIURETIC [id number] 00:04:00 Test Item Value Reference Range Interpretation Comments NT PRO-BRAIN 36.2 pg/mL 0-125 N ------ NATRIURETIC PEPTI (test code = PROBNP) -- NT PRO-BNP IS THE REPLACEMENT ASS AY FOR BNP. ------ ------ -- [id number] 00:04:00 Test Item Value Reference Range Interpretation Comments TROPONIN-I (test code = TROPI) < 0.012 NG/ML 0.012-0.033 L [id number] 00:04:00 Test Item Value Reference Range Interpretation Comments ALCOHOL (test code = ALC) < 10.0 MG/DL <10 COMPREHENSIVE METABOLIC [id number] 23:55:00 Test Item Value Reference Range Interpretation Comments SODIUM (test code = NA) 137 MMOL/L 137-145 N POTASSIUM (test code = 4.1 MMOL/L 3.5-5.1 N K) CHLORIDE (test code = 101 MMOL/L 98-107 N CL) CARBON DIOXIDE (test 25 MMOL/L 22-30 N code = CO2) GLUCOSE (test code = 114 MG/DL 74-106 H GLU) BLOOD UREA NITROGEN 16 MG/DL 9-20 N (test code = BUN) GLOMERULAR FILTRATION > 60 Report ing units: RATE (test code = GFR) ml/mi n/1.73 m2 (Modified MDRD Formula)Referen ce Range: > or = 6 0 ml/min/1.73 m2 CREATININE (test code = 0.80 MG/DL 0.66-1.25 N CREAT) TOTAL PROTEIN (test 8.4 G/DL 6.2-7.6 H code = PROT) ALBUMIN (test code = 4.8 G/DL 3.5-5.0 N ALB) CALCIUM (test code = 9.9 MG/DL 8.4-10.2 N CA) BILIRUBIN TOTAL (test 1.4 MG/DL 0.2-1.3 H code = BILT) SGOT/AST (test code = 50 UNITS/L 17-59 N AST) SGPT/ALT (test code = 34 UNITS/L 21-72 N ALT) ALKALINE PHOSPHATASE 54 UNITS/L 38-126 N (test code = ALKP) CREATINE KINASE (CK)2019-05-18 23:55:00 Test Item Value Reference Range Interpretation Comments CREATINE KINASE (CK) (test code = 697 UNITS/L 55-170 H CK) NT PRO-BRAIN NATRIURETIC [id number] 23:55:00 Test Item Value Reference Range Interpretation Comments NT PRO-BRAIN NATRIURETIC PEPTI (test pg/mL 0-125 code = PROBNP) [id number] 23:55:00 Test Item Value Reference Range Interpretation Comments TROPONIN-I (test code = TROPI) NG/ML 0.0-0.045 [id number] 23:55:00 Test Item Value Reference Range Interpretation Comments ALCOHOL (test code = ALC) < 10.0 MG/DL <10 CBC W/AUTO [id number] 23:38:00 Test Item Value Reference Range Interpretation Comments WHITE BLOOD CELL (test code = 18.2 K/MM3 3.8-9.8 H WBC) RED BLOOD CELL (test code = 5.34 M/MM3 3.95-5.67 N RBC) HEMOGLOBIN (test code = HGB) 17.0 G/DL 12.4-16.7 H HEMATOCRIT (test code = HCT) 48.9 % 35.9-49.5 N MEAN CELL VOLUME (test code = 92 fL 81.7-96.1 N MCV) MEAN CELL HGB (test code = MCH) 31.8 pg 27.6-33.2 N MEAN CELL HGB CONCETRATION 34.8 % 32.9-35.5 N (test code = MCHC) RED CELL DISTRIBUTION WIDTH 13.0 % 12.1-15.2 N (test code = RDW) PLATELET COUNT (test code = 233 K/MM3 129-368 N PLT) MEAN PLATELET VOLUME (test code 10.7 fl 7.4-10.4 H = MPV) NEUTROPHIL % (test code = NT%) 83.4 % 43-75 H IMMATURE GRANULOCYTE % (test 0.5 % 0.0-2.0 N code = IG%) LYMPHOCYTE % (test code = LY%) 8.8 % 14-44 L MONOCYTE % (test code = MO%) 6.8 % 4-13 N EOSINOPHIL % (test code = EO%) 0.1 % 0-6 N BASOPHIL % (test code = BA%) 0.4 % 0-2 N NUCLEATED RBC % (test code = 0.0 % 0-1.0 N NRBC%) NEUTROPHIL # (test code = NT#) 15.17 K/mm3 2.0-7.6 H IMMATURE GRANULOCYTE # (test 0.09 x10 3/uL 0-0.03 H code = IG#) LYMPHOCYTE # (test code = LY#) 1.59 K/mm3 1.0-3.8 N MONOCYTE # (test code = MO#) 1.23 K/mm3 0.1-0.8 H EOSINOPHIL # (test code = EO#) 0.01 K/mm3 0.0-0.2 N BASOPHIL # (test code = BA#) 0.07 K/mm3 0.0-0.2 N NUCLEATED RBC # (test code = 0.00 K/mm3 0.0-0.1 N NRBC#) POC VENOUS BLOOD [id number] 23:21:00 Test Item Value Reference Range Interpretation Comments POC LACTIC ACID (test code = 0.93 MMOL/L 0.4-2.0 N POCLAC) POC VENOUS BLOOD GAS PH (test 7.453 7.35-7.45 H code = POCPHV) POC VENOUS BLOOD GAS PCO2 (test 40.0 mmHg 35.0-45.0 N code = IAYGCF5S) POC VENOUS BLOOD GAS PO2 (test 88.0 mmHG 0-40 H code = CKCYH9X) POC HCO3 VENOUS (test code = 28.0 MMOL/L 20-26 H [id number]) POC BASE EXCESS VENOUS (test code 4 MMOL/L -3.0-3.0 H = POCBEV) POC O2 SATURATION VENOUS (test 97 % 72-77 H code = SVDT9BJ) - XR CHEST [id number] 23:12:00 Patient Name: ODELL MOTT Unit No: [id number] EXAMS: CPT CODE: [id number] XR CHEST 1V 02706 . HISTORY: chest pain, shortness of breath [...] Technologist: Maya Farfan (RT)(R) Transcrpt Date/Tm/Trnsp: 05/18/2019 (6752) [email or web address] Orig Print D/T: S: 05/18/2019 (5281) [facility] NAME: ODELL MOTT [id number] [address] PHYS: [email or web address] - [place] [address] : 1955 AGE: 63 SEX: M LOC: SUMAYA PHONE #: [phone] EXAM DATE: 05/18/2019 STATUS: PRE ER FAX #: [phone] RADIOLOGY NO: PAGE 1 Signed Report
--- NOTE | 2022-01-28 13:02 | RAD REPORT ---
EXAM DESCRIPTION: CTStone Protocol - 01/28/2022 12:48 pm CLINICAL HISTORY: Flank pain, kidney stone suspected COMPARISON: Abdomen Pelvis W Contrast dated 07/15/2021; Abdomen Pelvis Wo Contrast dated 03/20/2021 TECHNIQUE: CT of the abdomen and pelvis was performed. All CT scans are performed using dose optimization technique as appropriate and may include automated exposure control or mA/KV adjustment according to patient size. FINDINGS: Lower chest: Multi-vessel coronary artery disease. Liver: No acute abnormality or suspicious lesions. Biliary: No biliary ductal dilatation. Stomach: No significant focal abnormality. Duodenum: No significant focal abnormality. Pancreas: No significant abnormality. Spleen: No significant abnormality. Adrenal: No suspicious lesions. Kidney/ureter: No hydronephrosis. No renal calculi. Left renal cyst. Retroperitoneum: No retroperitoneal adenopathy. Vascular: No aneurysm. Bowel: Diverticulosis without evidence of acute diverticulitis.. Normal appendix. Peritoneum: No ascites or free air. Bladder: Grossly unremarkable. Reproductive: Prostatomegaly. The prostate measures 6.3 cm in transverse dimension. Bones: No acute fracture. Other: n/a IMPRESSION: No acute intra-abdominal or pelvic finding. Moderate to severe prostatomegaly which is s imilar to prior. No urinary tract calculi. Normal appendix.
--- NOTE | 2022-01-28 13:27 | ER ---
Nurse's Notes [facility] Name: Khai Quintanilla Age: 66 yrs Sex: Male : 1955 Arrival Date: 01/28/2022 Time: 12:12 Bed DIS3 Private MD: Diagnosis: Gross hematuria Presentation: 01/28 13:11 Chief complaint: Patient states: he woke up Wednesday morning with blood stains on his ap3 underwear. Patient reports having blood in his urine, and was seen by his PCP Wednesday. His provider notified the patient today that he needed to be evaluated in the ED for a CT scan and urine test due to it taking too long in the office. Coronavirus screen: At this time, the client does not indicate any symptoms associated with coronavirus-19. Ebola Screen: No symptoms or risks identified at this time. Initial Sepsis Screen: Does the patient meet any 2 criteria? No. Patient's initial sepsis screen is negative. Does the patient have a suspected source of infection? No. Patient's initial sepsis screen is negative. Risk Assessment: Do you want to hurt yourself or someone else? Patient reports no desire to harm self or others. Onset of symptoms was January 24, 2022. 13:11 Method Of Arrival: Ambulatory ap3 13:16 Acuity: BONNIE 2 ap3 Triage Assessment: 13:14 General: Appears uncomfortable, Behavior is calm, cooperative, appropriate for age. ap3 Pain: Complains of pain in left inguinal area. Neuro: Level of Consciousness is awake, alert, obeys commands, Speech is normal. Cardiovascular: Patient's skin is warm and dry. Respiratory: Airway is patent Respiratory effort is even, unlabored. : Reports bloody urine. Historical: - Allergies: 13:13 No Known Allergies; ap3 - PMHx: 13:13 Gout; Hepatitis C- treated; Hypertension; ap3 - PSHx: 13:13 Tonsillectomy; ap3 - Immunization history:: Client reports receiving the 2nd dose of the Covid vaccine. - Social history:: Smoking status: Patient denies any tobacco usage or history of. Patient uses alcohol, occasionally. Screenin:16 Abuse screen: Denies threats or abuse. Nutritional screening: No deficits noted. ap3 Tuberculosis screening: No symptoms or risk factors identified. 16:31 Fall Risk None identified. ss Assessment: 16:31 General: Appears in no apparent distress. comfortable, Behavior is calm, cooperative, ss Denies fever. Pain: Denies pain. Neuro: Level of Consciousness is awake, alert. Cardiovascular: Capillary refill < 3 seconds is brisk in bilateral fingers. Respiratory: Airway is patent Respiratory effort is even, unlabored, Respiratory pattern is regular, symmetrical. EENT: Oral mucosa is moist. Throat is clear. Derm: Skin is intact, is healthy with good turgor, Skin is dry, Skin is pink, warm \T\ dry. normal. Musculoskeletal: Circulation, motion, and sensation intact. Range of motion: intact in all extremities. Vital Signs: 13:11 BP 176 / 126; Pulse 67; Resp 17; Temp 97.6; Pulse Ox 98% ; Weight 95.25 kg; Height 6 ap3 ft. (182.88 cm); 13:16 BP 183 / 122; Pulse 79; Pulse Ox 98% on R/A; ap3 13:11 Body Mass Index 28.48 (95.25 kg, 182.88 cm) ap3 ED Course: 12:12 Patient arrived in ED. as 12:46 Alexander Byers PA is PHCP. [facility] 12:46 Shane Lao DO is Attending Physician. [facility] 12:50 CT Stone Protocol In Process Unspecified. EDMS 13:16 Triage completed. ap3 13:16 Patient has correct armband on for positive identification. ap3 13:16 Arm band placed on left wrist. ap3 13:18 EKG done, by ED staff. ap3 13:27 Deandre Tate MD is Referral Physician. [facility] 14:39 Inserted saline lock: 20 gauge in left antecubital area, using aseptic technique. Blood jw7 collected. 14:39 Initial lab(s) drawn, by de, sent to lab. jw7 14:40 CBC with Diff Sent. jw7 14:40 CMP Sent. jw7 14:40 Lipase Sent. jw7 16:30 Lynnette Regalado, BHARAT is Primary Nurse. ss 16:31 No provider procedures requiring assistance completed. IV discontinued, intact, ss bleeding controlled, No redness/swelling at site. Pressure dressing applied. Administered Medications: No medications were administered Medication: 13:16 VIS not applicable for this client. ap3 Outcome: 13:27 Discharge ordered by MD. cid 16:31 Discharged to home ambulatory. 16:31 Condition: good 16:31 Discharge instructions given to patient, Instructed on discharge instructions, follow up and referral plans. Demonstrated understanding of instructions, follow-up care, medications. 16:40 Patient left the ED. Signatures: Dispatcher [employer] EDMS Alexander Byers PA PA jmm Martinez, Amelia as Smirch, Shelby, RN RN Eva Feliciano RN RN ap3 Olivia Garcia jw7
--- NOTE | 2022-01-28 13:27 | EDPHYS ---
Physician Documentation [facility] Name: Khai Quintanilla Age: 66 yrs Sex: Male : 1955 Arrival Date: 01/28/2022 Time: 12:12 Bed DIS3 Private MD: ED Physician Shane Lao HPI: 01/28 12:24 This 66 yrs old Male presents to ER via Ambulatory with complaints of Urinary Problem. jmm 12:24 The patient presents with flank pain. Onset: The symptoms/episode began/occurred jmm gradually. 66-year-old male with history of gout, hypertension the presents emerged department with complaints of gross hematuria beginning approximately 2 days ago. Denies weakness or fatigue or fever. Patient states he has had ongoing left flank pain. Seen by PCP with blood work drawn.. Historical: - Allergies: 13:13 No Known Allergies; ap3 - PMHx: 13:13 Gout; Hepatitis C- treated; Hypertension; ap3 - PSHx: 13:13 Tonsillectomy; ap3 - Immunization history:: Client reports receiving the 2nd dose of the Covid vaccine. - Social history:: Smoking status: Patient denies any tobacco usage or history of. Patient uses alcohol, occasionally. ROS: 12:24 Constitutional: Negative for fever, chills, and weight loss, Cardiovascular: Negative jmm for chest pain, palpitations, and edema, Respiratory: Negative for shortness of breath, cough, wheezing, and pleuritic chest pain. 12:24 : Positive for urinary symptoms, hematuria. 12:24 All other systems are negative. Exam: 12:24 Constitutional: This is a well developed, well nourished patient who is awake, alert, jmm and in no acute distress. Head/Face: atraumatic. Eyes: EOMI, no conjunctival erythema appreciated ENT: Moist Mucus Membranes Neck: Trachea midline, Supple Chest/axilla: Normal chest wall appearance and motion. Cardiovascular: Regular rate and rhythm. No edema appreciated Respiratory: Normal respirations, no respiratory distress appreciated 12:24 Skin: General appearance color normal MS/ Extremity: Moves all extremities, no obvious deformities appreciated, no edema noted to the lower extremities Neuro: Awake and alert Psych: Behavior is normal, Mood is normal, Patient is cooperative and pleasant 12:24 Abdomen/GI: Inspection: abdomen appears normal, Bowel sounds: normal, Palpation: soft, nontender, in all quadrants. 12:24 Back: CVA tenderness, that is mild, is noted on the left. Vital Signs: 13:11 BP 176 / 126; Pulse 67; Resp 17; Temp 97.6; Pulse Ox 98% ; Weight 95.25 kg; Height 6 ap3 ft. (182.88 cm); 13:16 BP 183 / 122; Pulse 79; Pulse Ox 98% on R/A; ap3 13:11 Body Mass Index 28.48 (95.25 kg, 182.88 cm) ap3 MDM: 12:24 Patient medically screened. [facility] 13:26 Data reviewed: vital signs, nurses notes. Counseling: I had a detailed discussion with [facility] the patient and/or guardian regarding: the historical points, exam findings, and any diagnostic results supporting the discharge/admit diagnosis, radiology results, the need for outpatient follow up, to return to the emergency department if symptoms worsen or persist or if there are any questions or concerns that arise at home. Refusal of service: The patient/guardian displays adequate decision making capability and despite a detailed discussion of alternatives, benefits, risks, and consequences refuses: all lab tests. ED course: CT is negative. Patient refused labs. I advised the patient will need to follow-up with urology for further evaluation. Patient otherwise given strict return precautions. Patient understood agrees plan of care.. 01/28 12:25 Order name: CBC with Diff; Complete Time: 14:57 [facility] 01/28 12:25 Order name: CMP; Complete Time: 15:17 [facility] 01/28 12:25 Order name: Lipase; Complete Time: 15:17 [facility] 01/28 12:25 Order name: Labs collected and sent; Complete Time: 14:40 [facility] 01/28 12:26 Order name: CT Stone Protocol; Complete Time: 13:24 [facility] Administered Medications: No medications were administered Disposition: 17:05 Co-signature as Attending Physician, Shane SANCHEZ was immediately available on-site ms3 in the Emergency Department for consultation in the care of the patient.. Disposition Summary: 01/28/22 13:27 Discharge Ordered Location: Home [facility] Condition: Stable [facility] Diagnosis - Gross hematuria [facility] Followup: [facility] - With: Deandre Tate MD - When: 1 - 2 days - Reason: Recheck today's complaints, Continuance of care, Re-evaluation by your physician Discharge Instructions: - Discharge Summary Sheet jose roberto - Hematuria, Adult jose roberto Forms: - Medication Reconciliation Form jose roberto - Thank You Letter jose roberto - Antibiotic Education jose roberto - Prescription Opioid Use jose roberto Signatures: Dispatcher [employer] EDAlexander Engle PA PA jmm Prokisch, Amanda, BHARAT RN ap3 Shane Lao DO DO ms3 Corrections: (The following items were deleted from the chart) 12:59 12:25 IV Saline Lock ordered. jose roberto cid 12:59 12:25 Urine Dipstick-Ancillary ordered. jose roberto cid
[2022-01-28 14:44] LABS: Absolute Lymphocytes (CBC) 2.5 K/uL (0.7-4.9); Hematocrit 49.8 % (39.6-49.0); MPV 8.3 fL (7.6-11.3)
[2022-01-28 15:14] LABS: Albumin 4.3 g/dL (3.4-5.0); Bilirubin Total 0.4 mg/dL (0.2-1.0); Potassium 3.8 mmol/L (3.5-5.1); Protein, Total 8.1 g/dL (6.4-8.2)
[2022-01-28 16:47] VITALS: TEMP 97.6; O2SAT 98
[2022-01-28 16:48] VITALS: BP 183/122
--- NOTE | 2022-01-29 07:38 | EKG ---
Test Date: 2022-01-28 Test Time: 13:16:10 Hazmat Cdl A Driver: MELYSSA MEASUREMENT RESULTS: Intervals: Rate: 59 RI: 146 QRSD: 92 QT: 386 QTc: 382 [place]: P: 30 RI: 146 QRS: 78 T: 27 INTERPRETIVE STATEMENTS: Sinus bradycardia Otherwise normal ECG Compared to ECG 03/31/2019 12:55:48 Sinus rhythm no longer present Electronically Signed On 01-29-22 07:37:06 CDT by Benito Garcia
== END 2022-01-28 16:40 | disposition home or self-care (01) ==
LOC: ER 12:09
DX: R31.0 Gross hematuria (principal); R10.9 Unspecified abdominal pain; I10 Essential (primary) hypertension
CPT/HCPCS: 36415; 74176; 76377; 80053; 83690; 85025; 93005; 99284